=== PATIENT | male | born 1955 | race Caucasian/White ===

== ENCOUNTER 2016-10-31 14:48 | Inpatient (IN) | payer OTHER ==
[~2016-10-31] VITALS: Ht 190.5 cm; Wt 81.6 kg
[2016-10-31 14:48] VITALS: BP 169/95; PULSE 94; RESP 14; TEMP 98.2; O2SAT 98
[~2016-10-31 14:48] MED LIST: AMLO2.5T2 PO; MEMA10TA12 PO; TAMS-11 PO
[2016-10-31] MEDS ORDERED: DEXAMETHASONE SOD PHOSPHATE 10 MG/ML VIAL IVP ONE (15:15)
[2016-10-31] MEDS ORDERED: KETOROLAC TROMETHAMINE 60 MG/2 ML VIAL IM ONE (15:15)
[2016-10-31] MEDS ORDERED: HYDROcodone/ACETAMIN 5-325 MG TAB (NORCO/ VICODIN) PO ONE (15:15)
[2016-10-31 15:52] LABS: BASOPHILS # (AUTO) 0.2 K/uL (0.0-0.2); EOSINOPHILS % (AUTO) 0.4 % (0.0-4.0); HEMATOCRIT 42.9 % (36-54); LYMPHOCYTES # (AUTO) 1.3 K/uL (1.0-5.5); LYMPHOCYTES % (AUTO) 13.9 % (20.5-51.5); MEAN CORPUSCULAR HEMOGLOBIN 28 pg (27-31); MEAN CORPUSCULAR HGB CONC 33 % (32-36); MEAN CORPUSCULAR VOLUME 87 fL (79.0-98.0); MONOCYTES # (AUTO) 0.9 K/uL (0.0-1.0); NEUTROPHILS # (AUTO) 7.2 K/uL (1.8-7.7); NEUTROPHILS % (AUTO) 74.7 % (40.0-70.0); PLATELET COUNT (AUTO) 205 K/uL (130-430); RED BLOOD CELL COUNT(AUTO) 4.94 MIL/uL (4.2-6.2); RED CELL DISTRIBUTION WIDTH 13.5 % (9.0-15.0); WHITE BLOOD COUNT (AUTO) 9.6 K/uL (4.8-10.8)
[2016-10-31 16:03] LABS: CREATININE 0.99 mg/dL (0.55-1.30); POTASSIUM 3.6 mmol/L (3.5-5.1)
[2016-10-31 17:59] VITALS: BP 155/81; PULSE 87; RESP 16; TEMP 98.4; O2SAT 96
[2016-10-31] MEDS ORDERED: MORPHINE 2 MG/ML INJ. SYRINGE IVP PRN (18:45)
[2016-10-31] MEDS ORDERED: POTASSIUM CHLORIDE 10 MEQ TAB.PRT.SR PO PRN (18:45)
[2016-10-31] MEDS ORDERED: DOCUSATE SODIUM 100 MG CAPSULE PO PRN (18:45)
[2016-10-31] MEDS ORDERED: ZOLPIDEM TARTRATE 5 MG TABLET PO PRN (18:45)
[2016-10-31] MEDS ORDERED: ACETAMINOPHEN 325 MG TABLET PO PRN (18:45)
[2016-10-31] MEDS ORDERED: MAGNESIUM SULFATE 50 ML IV PRN (18:45)
[2016-10-31] MEDS ORDERED: LORazepam 2 MG/ML VIAL IVP PRN (18:45)
[2016-10-31] MEDS ORDERED: ONDANSETRON HCL 4 MG/2 ML VIAL IVP PRN (18:45)
[2016-10-31 19:08] VITALS: BP 142/79; PULSE 72; RESP 18; TEMP 98.7; O2SAT 95
[2016-10-31] MEDS: MORPHINE 2 MG/ML INJ. SYRINGE IVP PRN (21:16)
[2016-10-31] MEDS: HEPARIN SODIUM,PORCINE 5000 UNITS/ML VIAL SUBCUT SCH (21:22)
[2016-10-31] MEDS: CYCLOBENZAPRINE HCL 10 MG TABLET (FLEXERIL) PO SCH (21:28)
[2016-11-01 00:32] VITALS: BP 129/72; PULSE 88; RESP 18; TEMP 98.2; O2SAT 96
[2016-11-01 04:49] VITALS: BP 123/68; PULSE 82; RESP 17; TEMP 98; O2SAT 97
[2016-11-01] MEDS: CYCLOBENZAPRINE HCL 10 MG TABLET (FLEXERIL) PO SCH ×3 (05:36→21:26)
[2016-11-01 06:50] LABS: BASOPHILS % (AUTO) 0.1 % (0.0-2.0); HEMATOCRIT 40.3 % (36-54); HEMOGLOBIN 13.1 g/dL (14.0-18.0); LYMPHOCYTES # (AUTO) 0.9 K/uL (1.0-5.5); LYMPHOCYTES % (AUTO) 16.4 % (20.5-51.5); MEAN CORPUSCULAR HEMOGLOBIN 28 pg (27-31); MEAN CORPUSCULAR HGB CONC 33 % (32-36); MEAN CORPUSCULAR VOLUME 87 fL (79.0-98.0); MONOCYTES # (AUTO) 0.1 K/uL (0.0-1.0); MONOCYTES % (AUTO) 2.6 % (1.7-9.3); NEUTROPHILS # (AUTO) 4.7 K/uL (1.8-7.7); NEUTROPHILS % (AUTO) 80.9 % (40.0-70.0); PLATELET COUNT (AUTO) 243 K/uL (130-430); RED BLOOD CELL COUNT(AUTO) 4.66 MIL/uL (4.2-6.2); RED CELL DISTRIBUTION WIDTH 13.6 % (9.0-15.0); WHITE BLOOD COUNT (AUTO) 5.7 K/uL (4.8-10.8)
[2016-11-01 07:21] LABS: CALCIUM 10.1 mg/dL (8.4-11.0); CREATININE 0.98 mg/dL (0.55-1.30); POTASSIUM 3.8 mmol/L (3.5-5.1)
[2016-11-01 08:16] VITALS: BP 152/83; PULSE 92; RESP 18; TEMP 97.7; O2SAT 96
[2016-11-01] MEDS: MEMANTINE HCL 5 MG TABLET PO SCH (08:18)
[2016-11-01] MEDS: TAMSULOSIN HCL 0.4 MG CAP PO SCH (08:18)
[2016-11-01] MEDS: HEPARIN SODIUM,PORCINE 5000 UNITS/ML VIAL SUBCUT SCH ×2 (08:24→21:28)
[2016-11-01] MEDS ORDERED: amLODIPine BESYLATE 5 MG TABLET PO SCH (09:00)
[2016-11-01 12:11] VITALS: BP 134/69; PULSE 97; RESP 19; TEMP 96.8; O2SAT 96
[2016-11-01 16:31] VITALS: BP 143/71; PULSE 79; RESP 17; TEMP 98; O2SAT 98
[2016-11-01 19:00] VITALS: BP 137/82; PULSE 78; RESP 18; TEMP 98.7; O2SAT 93
[2016-11-01] MEDS: MORPHINE 2 MG/ML INJ. SYRINGE IVP PRN (19:02)
[2016-11-02] VITALS (7 sets, daily range): BP systolic 130–155; BP diastolic 67–80; PULSE 59–97; RESP 16–19; TEMP 98–99.4; O2SAT 90–98
[2016-11-02] MEDS: CYCLOBENZAPRINE HCL 10 MG TABLET (FLEXERIL) PO SCH ×3 (06:25→21:26)
[2016-11-02] MEDS: MORPHINE 2 MG/ML INJ. SYRINGE IVP PRN ×3 (06:31→18:43)
[2016-11-02 07:46] LABS: BASOPHILS % (AUTO) 0.3 % (0.0-2.0); EOSINOPHILS % (AUTO) 0.4 % (0.0-4.0); HEMATOCRIT 38.5 % (36-54); LYMPHOCYTES # (AUTO) 1.6 K/uL (1.0-5.5); LYMPHOCYTES % (AUTO) 19.1 % (20.5-51.5); MEAN CORPUSCULAR HEMOGLOBIN 29 pg (27-31); MEAN CORPUSCULAR HGB CONC 34 % (32-36); MEAN CORPUSCULAR VOLUME 86 fL (79.0-98.0); MONOCYTES # (AUTO) 0.6 K/uL (0.0-1.0); MONOCYTES % (AUTO) 7.9 % (1.7-9.3); NEUTROPHILS % (AUTO) 72.3 % (40.0-70.0); PLATELET COUNT (AUTO) 222 K/uL (130-430); RED BLOOD CELL COUNT(AUTO) 4.46 MIL/uL (4.2-6.2); RED CELL DISTRIBUTION WIDTH 14.1 % (9.0-15.0); WHITE BLOOD COUNT (AUTO) 8.2 K/uL (4.8-10.8)
[2016-11-02 08:23] LABS: CALCIUM 9.9 mg/dL (8.4-11.0); CREATININE 1.07 mg/dL (0.55-1.30); POTASSIUM 3.2 mmol/L (3.5-5.1)
[2016-11-02] MEDS: amLODIPine BESYLATE 5 MG TABLET PO SCH (08:32)
[2016-11-02] MEDS: TAMSULOSIN HCL 0.4 MG CAP PO SCH (08:32)
[2016-11-02] MEDS: MEMANTINE HCL 5 MG TABLET PO SCH (08:32)
[2016-11-02] MEDS: HEPARIN SODIUM,PORCINE 5000 UNITS/ML VIAL SUBCUT SCH ×2 (08:36→21:28)
[2016-11-03] VITALS: BP 116/78; PULSE 80; RESP 20; TEMP 98.4; O2SAT 96
[2016-11-03 04:00] VITALS: BP 127/71; PULSE 76; RESP 18; TEMP 98.3; O2SAT 95
[2016-11-03] MEDS: CYCLOBENZAPRINE HCL 10 MG TABLET (FLEXERIL) PO SCH ×3 (06:27→21:38)
[2016-11-03 06:52] LABS: CALCIUM 9.5 mg/dL (8.4-11.0); CREATININE 1.07 mg/dL (0.55-1.30); POTASSIUM 3.6 mmol/L (3.5-5.1)
[2016-11-03 06:54] LABS: BASOPHILS % (AUTO) 0.4 % (0.0-2.0); EOSINOPHILS % (AUTO) 0.5 % (0.0-4.0); HEMATOCRIT 38.7 % (36-54); LYMPHOCYTES # (AUTO) 1.2 K/uL (1.0-5.5); LYMPHOCYTES % (AUTO) 15.6 % (20.5-51.5); MEAN CORPUSCULAR HEMOGLOBIN 29 pg (27-31); MEAN CORPUSCULAR HGB CONC 34 % (32-36); MEAN CORPUSCULAR VOLUME 86 fL (79.0-98.0); MONOCYTES # (AUTO) 0.7 K/uL (0.0-1.0); MONOCYTES % (AUTO) 9.8 % (1.7-9.3); NEUTROPHILS # (AUTO) 5.5 K/uL (1.8-7.7); NEUTROPHILS % (AUTO) 73.7 % (40.0-70.0); PLATELET COUNT (AUTO) 227 K/uL (130-430); RED CELL DISTRIBUTION WIDTH 13.8 % (9.0-15.0); WHITE BLOOD COUNT (AUTO) 7.4 K/uL (4.8-10.8)
[2016-11-03 09:08] LABS: A/G RATIO 0.9 (0.7-1.7); ALBUMIN 3.7 g/dL (2.9-4.4); ALPHA-1-GLOBULIN 0.4 g/dL (0.0-0.4); BETA GLOBULIN 0.9 g/dL (0.7-1.3); GAMMA GLOBULIN 1.7 g/dL (0.4-1.8); M-SPIKE Not Observed g/dL (Not Observed)
[2016-11-03] MEDS: MEMANTINE HCL 5 MG TABLET PO SCH (09:44)
[2016-11-03] MEDS: TAMSULOSIN HCL 0.4 MG CAP PO SCH (09:44)
[2016-11-03] MEDS: amLODIPine BESYLATE 5 MG TABLET PO SCH (09:45)
[2016-11-03] MEDS: HEPARIN SODIUM,PORCINE 5000 UNITS/ML VIAL SUBCUT SCH ×2 (09:48→21:40)
[2016-11-03] MEDS: MORPHINE 2 MG/ML INJ. SYRINGE IVP PRN ×2 (10:06→18:23)
[2016-11-03] MEDS ORDERED: oxyCODONE HCL 10 MG TAB.ER.12H PO ONE (10:15)
[2016-11-03 12:06] VITALS: BP 135/76; PULSE 99; RESP 16; TEMP 99.5; O2SAT 95
[2016-11-03 16:12] VITALS: BP 147/74; PULSE 94; RESP 16; TEMP 98.9; O2SAT 99
[2016-11-03 19:30] VITALS: BP 139/79; PULSE 102; RESP 18; TEMP 100; O2SAT 97
[2016-11-03] MEDS ORDERED: oxyCODONE HCL 10 MG TAB.ER.12H PO SCH (21:00)
[2016-11-04 00:05] VITALS: BP 156/87; PULSE 115; RESP 17; TEMP 100; O2SAT 95
[2016-11-04 04:39] VITALS: BP 156/97; PULSE 113; RESP 17; TEMP 98.4; O2SAT 97
[2016-11-04] MEDS: CYCLOBENZAPRINE HCL 10 MG TABLET (FLEXERIL) PO SCH ×3 (06:07→21:37)
[2016-11-04 06:36] LABS: BASOPHILS % (AUTO) 0.4 % (0.0-2.0); EOSINOPHILS # (AUTO) 0.1 K/uL (0.0-0.4); EOSINOPHILS % (AUTO) 0.7 % (0.0-4.0); HEMATOCRIT 38.9 % (36-54); HEMOGLOBIN 12.9 g/dL (14.0-18.0); LYMPHOCYTES # (AUTO) 1.1 K/uL (1.0-5.5); LYMPHOCYTES % (AUTO) 12.9 % (20.5-51.5); MEAN CORPUSCULAR HEMOGLOBIN 28 pg (27-31); MEAN CORPUSCULAR HGB CONC 33 % (32-36); MEAN CORPUSCULAR VOLUME 86 fL (79.0-98.0); MONOCYTES # (AUTO) 0.7 K/uL (0.0-1.0); MONOCYTES % (AUTO) 8.1 % (1.7-9.3); NEUTROPHILS # (AUTO) 6.6 K/uL (1.8-7.7); NEUTROPHILS % (AUTO) 77.9 % (40.0-70.0); PLATELET COUNT (AUTO) 222 K/uL (130-430); RED BLOOD CELL COUNT(AUTO) 4.56 MIL/uL (4.2-6.2); RED CELL DISTRIBUTION WIDTH 13.8 % (9.0-15.0); WHITE BLOOD COUNT (AUTO) 8.5 K/uL (4.8-10.8)
[2016-11-04 06:47] LABS: CALCIUM 9.3 mg/dL (8.4-11.0); CREATININE 1.1 mg/dL (0.55-1.30); POTASSIUM 3.7 mmol/L (3.5-5.1)
[2016-11-04 08:00] VITALS: BP 134/82; PULSE 121; RESP 18; TEMP 101.1; O2SAT 94
[2016-11-04] MEDS: TAMSULOSIN HCL 0.4 MG CAP PO SCH (09:47)
[2016-11-04] MEDS: MORPHINE 2 MG/ML INJ. SYRINGE IVP PRN (09:47)
[2016-11-04] MEDS: METOPROLOL TARTRATE 25 MG TABLET PO SCH ×2 (09:48→21:38)
[2016-11-04] MEDS: MEMANTINE HCL 5 MG TABLET PO SCH (09:49)
[2016-11-04] MEDS: amLODIPine BESYLATE 5 MG TABLET PO SCH (09:49)
[2016-11-04] MEDS: HEPARIN SODIUM,PORCINE 5000 UNITS/ML VIAL SUBCUT SCH ×2 (09:59→21:37)
[2016-11-04 10:09] LABS: FOLATE (FOLIC ACID) 11.1 ng/mL (>3.0)
[2016-11-04 11:30] VITALS: BP 128/79; PULSE 117; RESP 19; TEMP 99.9; O2SAT 94
[2016-11-04] MEDS: LIDOCAINE PATCH 5% 1 EA TP SCH (15:11)
[2016-11-04 18:32] LABS: BILIRUBIN,URINE NEGATIVE (NEGATIVE); BLOOD, URINE 2+ (NEGATIVE); CLARITY/URINE HAZY (CLEAR); COLOR,URINE YELLOW (YELLOW); GLUCOSE,URINE NEGATIVE (NEGATIVE); KETONES,URINE NEGATIVE (NEGATIVE); LEUKOCYTE ESTERASE ,URINE 1+ (NEGATIVE); NITRITE, URINE NEGATIVE (NEGATIVE); PH,URINE 6.5 (5.0-8.0); PROTEIN URINE 1+ (NEGATIVE); UROBILINOGEN,URINE 0.2 (0.2-1.0)
[2016-11-04 18:46] LABS: BACTERIA,URINE MANY /HPF (None Seen); WBC,URINE 20-50 /HPF (0-3)
[2016-11-05 00:44] VITALS: BP 117/75; PULSE 97; RESP 18; TEMP 99.1; O2SAT 97
[2016-11-05 04:05] VITALS: BP 133/77; PULSE 87; RESP 16; TEMP 97.3; O2SAT 96
[2016-11-05] MEDS: CYCLOBENZAPRINE HCL 10 MG TABLET (FLEXERIL) PO SCH ×3 (05:33→22:04)
[2016-11-05 06:43] LABS: BASOPHILS % (AUTO) 0.5 % (0.0-2.0); EOSINOPHILS # (AUTO) 0.1 K/uL (0.0-0.4); EOSINOPHILS % (AUTO) 1.5 % (0.0-4.0); HEMATOCRIT 40.8 % (36-54); HEMOGLOBIN 13.4 g/dL (14.0-18.0); LYMPHOCYTES # (AUTO) 1.2 K/uL (1.0-5.5); LYMPHOCYTES % (AUTO) 12.5 % (20.5-51.5); MEAN CORPUSCULAR HEMOGLOBIN 28 pg (27-31); MEAN CORPUSCULAR HGB CONC 33 % (32-36); MEAN CORPUSCULAR VOLUME 86 fL (79.0-98.0); MONOCYTES # (AUTO) 0.6 K/uL (0.0-1.0); MONOCYTES % (AUTO) 6.4 % (1.7-9.3); NEUTROPHILS # (AUTO) 7.5 K/uL (1.8-7.7); NEUTROPHILS % (AUTO) 79.1 % (40.0-70.0); PLATELET COUNT (AUTO) 200 K/uL (130-430); RED BLOOD CELL COUNT(AUTO) 4.76 MIL/uL (4.2-6.2); RED CELL DISTRIBUTION WIDTH 14.2 % (9.0-15.0); WHITE BLOOD COUNT (AUTO) 9.4 K/uL (4.8-10.8)
[2016-11-05 06:45] LABS: CALCIUM 9.8 mg/dL (8.4-11.0); CREATININE 1.01 mg/dL (0.55-1.30); POTASSIUM 3.8 mmol/L (3.5-5.1)
[2016-11-05 08:00] VITALS: BP 131/63; PULSE 95; RESP 20; TEMP 98; O2SAT 97
[2016-11-05] MEDS: cefTRIAXone 1 GM in D5W 50 ML IV SCH ×2 (09:00→14:59)
[2016-11-05] MEDS: TAMSULOSIN HCL 0.4 MG CAP PO SCH (09:49)
[2016-11-05] MEDS: MEMANTINE HCL 5 MG TABLET PO SCH (09:49)
[2016-11-05] MEDS: amLODIPine BESYLATE 5 MG TABLET PO SCH (09:50)
[2016-11-05] MEDS: METOPROLOL TARTRATE 25 MG TABLET PO SCH ×2 (09:50→22:05)
[2016-11-05] MEDS: LIDOCAINE PATCH 5% 1 EA TP SCH (09:52)
[2016-11-05] MEDS: HEPARIN SODIUM,PORCINE 5000 UNITS/ML VIAL SUBCUT SCH ×2 (09:54→22:06)
[2016-11-05] MEDS: MORPHINE 2 MG/ML INJ. SYRINGE IVP PRN (09:55)
[2016-11-05 12:00] VITALS: BP 129/71; PULSE 82; RESP 18; TEMP 97.5; O2SAT 94
[2016-11-05 16:11] VITALS: BP 128/68; PULSE 94; RESP 16; TEMP 97.8; O2SAT 96
[2016-11-05 16:16] VITALS: Ht 190.5 cm; Wt 81.6 kg
[2016-11-05 19:55] VITALS: BP 138/79; PULSE 107; RESP 18; TEMP 99.3; O2SAT 96
[2016-11-06 00:55] VITALS: BP 137/75; PULSE 100; RESP 18; TEMP 98.2; O2SAT 95
[2016-11-06 04:17] VITALS: BP 141/76; PULSE 96; RESP 20; TEMP 97.6; O2SAT 96
[2016-11-06] MEDS: CYCLOBENZAPRINE HCL 10 MG TABLET (FLEXERIL) PO SCH ×3 (05:29→21:03)
[2016-11-06] MEDS: MORPHINE 2 MG/ML INJ. SYRINGE IVP PRN (06:10)
[2016-11-06 08:20] VITALS: BP 136/77; PULSE 97; RESP 17; TEMP 98.8; O2SAT 96
[2016-11-06] MEDS: MEMANTINE HCL 5 MG TABLET PO SCH (09:43)
[2016-11-06] MEDS: TAMSULOSIN HCL 0.4 MG CAP PO SCH (09:44)
[2016-11-06] MEDS: cefTRIAXone 1 GM in D5W 50 ML IV SCH (09:44)
[2016-11-06] MEDS: LIDOCAINE PATCH 5% 1 EA TP SCH (09:44)
[2016-11-06] MEDS: METOPROLOL TARTRATE 25 MG TABLET PO SCH ×2 (09:44→21:04)
[2016-11-06] MEDS: amLODIPine BESYLATE 5 MG TABLET PO SCH (09:44)
[2016-11-06] MEDS: HEPARIN SODIUM,PORCINE 5000 UNITS/ML VIAL SUBCUT SCH ×2 (09:46→21:05)
[2016-11-06 12:57] VITALS: BP 128/62; PULSE 84; RESP 22; TEMP 97.2; O2SAT 97
[2016-11-06 16:01] VITALS: BP 127/72; PULSE 101; RESP 18; TEMP 97.8; O2SAT 97
[2016-11-06 20:00] VITALS: BP 124/91; PULSE 112; RESP 19; TEMP 98.8; O2SAT 94
[2016-11-07] VITALS: BP 123/71; PULSE 88; RESP 17; TEMP 99; O2SAT 95
[2016-11-07 04:00] VITALS: BP 130/73; PULSE 91; RESP 17; TEMP 99.7; O2SAT 94
[2016-11-07] MEDS: CYCLOBENZAPRINE HCL 10 MG TABLET (FLEXERIL) PO SCH ×2 (05:23→15:54)
[2016-11-07 08:09] VITALS: BP 124/79; PULSE 98; RESP 16; TEMP 99.2; O2SAT 96
[2016-11-07] MEDS: TAMSULOSIN HCL 0.4 MG CAP PO SCH (09:14)
[2016-11-07] MEDS: amLODIPine BESYLATE 5 MG TABLET PO SCH (09:15)
[2016-11-07] MEDS: METOPROLOL TARTRATE 25 MG TABLET PO SCH (09:15)
[2016-11-07] MEDS: MEMANTINE HCL 5 MG TABLET PO SCH (09:15)
[2016-11-07] MEDS: HEPARIN SODIUM,PORCINE 5000 UNITS/ML VIAL SUBCUT SCH (09:17)
[2016-11-07] MEDS: LIDOCAINE PATCH 5% 1 EA TP SCH (09:18)
[2016-11-07] MEDS: cefTRIAXone 1 GM in D5W 50 ML IV SCH (10:18)
[2016-11-07] MEDS: MORPHINE 2 MG/ML INJ. SYRINGE IVP PRN (10:18)
[2016-11-07 12:59] VITALS: BP 124/69; PULSE 95; RESP 16; TEMP 98; O2SAT 99
[2016-11-07] MEDS ORDERED: HYDROcodone/ACETAMIN 10-325 MG TAB PO PRN (15:15)
[2016-11-07 16:05] VITALS: BP 130/70; PULSE 89; RESP 17; TEMP 97.8; O2SAT 98
[2016-11-07 18:01] VITALS: BP 130/70; PULSE 89; RESP 17; TEMP 97.8; O2SAT 98
== END 2016-11-07 20:31 | disposition home or self-care (01) | DRG 720 ==
LOC: SED 14:48 → SMU 16:23 → UNDODISIN 11-07 20:31
PROVIDERS: ADMIT General Practice; ATTEND General Practice
DX: A41.9 Sepsis, unspecified organism (principal); E87.1 Hypo-osmolality and hyponatremia; F03.90 Unspecified dementia, unspecified severity, without behavioral disturbance, psychotic disturbance, mood disturbance, and anxiety; M48.56XA Collapsed vertebra, not elsewhere classified, lumbar region, initial encounter for fracture; N39.0 Urinary tract infection, site not specified; I10 Essential (primary) hypertension; R26.81 Unsteadiness on feet; M47.816 Spondylosis without myelopathy or radiculopathy, lumbar region; N40.0 Benign prostatic hyperplasia without lower urinary tract symptoms; R29.6 Repeated falls; Z86.73 Personal history of transient ischemic attack (TIA), and cerebral infarction without residual deficits
CPT/HCPCS: 36415; 71010; 72131; 80048; 81000-TC; 82607; 82746; 83735-TC; 84155; 84165; 84443-TC; 85025; 87086; 87186-TC; 96372; 96374; 97110-GP; 97116-GP; 97530-GP; 99285; J0696; J1100; J1644; J1885; J2270; J7050; J7060

== ENCOUNTER 2016-12-18 06:40 | Inpatient (IN) | payer OTHER ==
[~2016-12-18] VITALS: Ht 170.2 cm; Wt 63.0 kg
--- NOTE | 2016-12-18 06:40 | NUR ---
Patient to ER bed 2 to gown for evaluation. Side rails up. Report given to ENA Montilla. Hooked to monitor technician.
[2016-12-18 06:42] VITALS: BP 140/89; PULSE 133; RESP 22; TEMP 104; O2SAT 100
--- NOTE | 2016-12-18 06:45 | NUR ---
Pt confused, unable to verbalize needs. Pt came from [facility] with chief c/o altered level of conciousness, fever 104. aware. Continue to monitor
--- NOTE | 2016-12-18 06:50 | NUR ---
# 20 gauge angiocath placed to R wrist. Use of asceptic technique. Opsite placed over site. Blood return noted. Blood for lab drawn from site. Flushed with 10 cc of normal saline. No evidence of infiltration noted. Patient tolerated well.
--- NOTE | 2016-12-18 07:10 | NUR ---
ER at bedside examining patient.
[2016-12-18] MEDS ORDERED: ACETAMINOPHEN 650 MG SUPP.RECT RC ONE ×2 (07:13→07:30)
[2016-12-18] MEDS ORDERED: NS 1000 ML BAG IV ONE (07:15)
[2016-12-18] MEDS ORDERED: LEVOFLOXACIN 500 MG/D5W 100 ML IV ONE (07:15)
[2016-12-18] MEDS ORDERED: ACETAMINOPHEN 325 MG TABLET PO ONE (07:15)
--- NOTE | 2016-12-18 07:20 | NUR ---
Assumed care of pt. Pt lying in bed, supine. Suppository of tylenol given. Small, soft brown BM cleansed, clean chux placed. Pt tolerated well. ST on monitor, cold cloth on forehead for fever. Non-verbal, eyes open, not tracking. Pupils PERRLA. Moves upper extremities to pain and tactile touch. No redness noted to backside. Pt has abd binder in place, removed. Abdomen soft, no redness, no recent surgeries. Left arm slightly contracted, +active ROM, pt retracts arm up after flexion. Right arm no retraction. Bilat legs flaccid, shakes at time, no passive bending noted.
--- NOTE | 2016-12-18 07:24 | NUR ---
# 16 FR Col[place] catheter with use of sterile technique. Immediate return of 400 cc dark yellow/yas urine noted. Bedside drainage bag placed below level of bladder. Urine sample collected and sent to lab. Pt tolerated procedure well. Patient unable to toilet self d/t condition.
[2016-12-18 07:25] LABS: BASOPHILS # (AUTO) 0.2 K/uL (0.0-0.2); EOSINOPHILS % (AUTO) 0.2 % (0.0-4.0); HEMATOCRIT 41.5 % (36-54); HEMOGLOBIN 13.6 g/dL (14.0-18.0); LYMPHOCYTES # (AUTO) 0.9 K/uL (1.0-5.5); LYMPHOCYTES % (AUTO) 11.1 % (20.5-51.5); MEAN CORPUSCULAR HEMOGLOBIN 28 pg (27-31); MEAN CORPUSCULAR HGB CONC 33 % (32-36); MEAN CORPUSCULAR VOLUME 86 fL (79.0-98.0); MONOCYTES # (AUTO) 0.5 K/uL (0.0-1.0); MONOCYTES % (AUTO) 5.8 % (1.7-9.3); NEUTROPHILS # (AUTO) 6.8 K/uL (1.8-7.7); NEUTROPHILS % (AUTO) 80.9 % (40.0-70.0); PLATELET COUNT (AUTO) 239 K/uL (130-430); RED BLOOD CELL COUNT(AUTO) 4.86 MIL/uL (4.2-6.2); RED CELL DISTRIBUTION WIDTH 14.6 % (9.0-15.0); WHITE BLOOD COUNT (AUTO) 8.4 K/uL (4.8-10.8)
--- NOTE | 2016-12-18 07:30 | NUR ---
NS infusing to LAC noted to be infiltrated. D/C'd. IV removed catheter intact. No active bleeding. Continue IVF to 20g IV rt wrist. Addendum: 12/18/16 at 0740 by SDEDSTC dressing placed
[2016-12-18] MEDS ORDERED: NOR10 PO (07:32)
[2016-12-18] MEDS ORDERED: METO25TA6 PO (07:33)
[2016-12-18] MEDS ORDERED: CYCL-10 PO (07:33)
[2016-12-18] MEDS ORDERED: HEPA500014 SUBCUT (07:34)
[2016-12-18] MEDS ORDERED: LIDP TP (07:35)
--- NOTE | 2016-12-18 07:35 | NUR ---
IVPB infusing to rt wrist with no s/sx of infiltration.
--- NOTE | 2016-12-18 07:35 | NUR ---
Medication reconciliation completed with information provided by Mark Garrett. Any prior medication reconciliation on file was reviewed and corrected.
[2016-12-18 07:36] LABS: BILIRUBIN,URINE 1+ (NEGATIVE); BLOOD, URINE 3+ (NEGATIVE); CLARITY/URINE CLEAR (CLEAR); COLOR,URINE YELLOW (YELLOW); GLUCOSE,URINE NEGATIVE (NEGATIVE); KETONES,URINE TRACE (NEGATIVE); LEUKOCYTE ESTERASE ,URINE TRACE (NEGATIVE); NITRITE, URINE NEGATIVE (NEGATIVE); PH,URINE 5.5 (5.0-8.0); PROTEIN URINE 2+ (NEGATIVE)
--- NOTE | 2016-12-18 07:39 | NUR ---
Phleb at bedside for lab re-draw, previous blood was hemolized.
[2016-12-18 07:45] LABS: BACTERIA,URINE MODERATE /HPF (None Seen); MUCUS,URINE 1+ /LPF (None Seen); WBC,URINE 20-50 /HPF (0-3)
--- NOTE | 2016-12-18 07:50 | NUR ---
Blood noted to be in guan catheter tubing. notified
[2016-12-18 08:03] LABS: CALCIUM 9.7 mg/dL (8.4-11.0); CREATININE 1.2 mg/dL (0.55-1.30)
[2016-12-18 08:04] LABS: INR 1.1 (0.80-1.20)
--- NOTE | 2016-12-18 08:04 | NUR ---
Off unit for CT via [facility]
[2016-12-18 08:08] LABS: TOTAL BILIRUBIN 0.5 mg/dL (0.0-1.0); TOTAL PROTEIN, SERUM 7.9 g/dL (6.4-8.3)
--- NOTE | 2016-12-18 08:17 | NUR ---
Pt back from CT, tolerated well.
--- NOTE | 2016-12-18 08:28 | NUR ---
Pt cleansed for skant soft brown BM. Clean chux placed. Rectal temp 101.1. Pt awake, alert, tracking. Able to move arms and legs freely. Denies pain. Able to mumble yes/no answers and nod head appropriately. IVF infusing with no s/x of infiltration. Will continue to monitor.
--- NOTE | 2016-12-18 09:08 | NUR ---
Daughter Anne on the phone states that last night he was altered and was unable to talk to her and he usually is able to have a conversation. Hx of dementia and is forgetful, but usually able to communicate needs.
[2016-12-18] MEDS ORDERED: MORPHINE 2 MG/ML INJ. SYRINGE IVP PRN (09:15)
[2016-12-18] MEDS ORDERED: ZOLPIDEM TARTRATE 5 MG TABLET PO PRN (09:15)
[2016-12-18] MEDS ORDERED: ACETAMINOPHEN 325 MG TABLET PO PRN (09:15)
[2016-12-18] MEDS ORDERED: LORazepam 2 MG/ML VIAL IVP PRN (09:15)
[2016-12-18] MEDS ORDERED: MAGNESIUM SULFATE 50 ML IV PRN (09:15)
[2016-12-18] MEDS ORDERED: DOCUSATE SODIUM 100 MG CAPSULE PO PRN (09:15)
[2016-12-18] MEDS ORDERED: ONDANSETRON HCL 4 MG/2 ML VIAL IVP PRN (09:15)
--- NOTE | 2016-12-18 09:18 | NUR ---
Patient will be admitted to care of Dr. Patel. Admitted to tele unit. Will go to room 121-B. Belongings list completed. Summary report printed. Report given to RN at bedside. Transfer to tele via ACLS protocol. Licensed nurse present. IV present no signs or symptoms of infiltration.
--- NOTE | 2016-12-18 09:23 | NUR ---
Dr. Patel at bedside for evaluation
[2016-12-18 09:30] VITALS: BP 137/75; PULSE 116; RESP 18; TEMP 99; O2SAT 99
--- NOTE | 2016-12-18 09:30 | NUR ---
ADMISSION NOTE Received patient from ER via gurney, received report from RN. Patient admitted with diagnosis of UTI. Patient oriented to hospital routine, call light, toileting and safety-patient verbalized understanding.
--- NOTE | 2016-12-18 09:35 | NUR ---
NOTES RECEIVED FROM ER, SLIGHTLY DROWSY. PT UNABLE TO TALK AT THIS TIME. 2ND BAG OF NS RUNNING AT THIS TIME. JAIME CATHETER DRAINING DARK URINE. NO SKIN BREAKDOWN. SAFETY PRECAUTION OBSERVED. WILL MONITOR.
--- NOTE | 2016-12-18 10:54 | NUR ---
CONSULT WAS CALLED LEFT MASSAGE WITH GAIL SPEECH THERAPIST
--- NOTE | 2016-12-18 11:30 | NUR ---
NOTES IN BED AWAKE, RESTING. PT TRYING TO TALK BUT UNABLE TO. KEEP NPO FOR NOW. WAITING FOR SWALLOW EVAL.
[2016-12-18 12:18] VITALS: BP 136/79; PULSE 114; RESP 14; TEMP 97.9; O2SAT 100
[2016-12-18] MEDS: D5NS 1,000 ML IV SCH ×2 (13:40→21:43)
[2016-12-18] MEDS: CYCLOBENZAPRINE HCL 10 MG TABLET (FLEXERIL) PO SCH ×2 (13:41→21:28)
--- NOTE | 2016-12-18 15:00 | NUR ---
NOTES FAMILY AT BEDSIDE. PER FAMILY, PT ABLE TO COMMUNICATE YESTERDAY AND THE FACIAL DROOPING ON THE RIGHT OF THE FACE IS NEW. PT DOES NOT FOLLOW COMMAND AT THIS TIME.
--- NOTE | 2016-12-18 15:10 | NUR ---
SPEECH THERAPIST AT BEDSIDE AT THIS TIME.
--- NOTE | 2016-12-18 15:17 | NUR ---
S.T. SWALLOW EVAL COMPLETED. ADULT CHILDREN PRESENT. PT PRESENTS W/ SEV OROPHARYNGEAL DYSPHAGIA W/ POOR BOLUS CLINICAL RESEARCH ANALYST, ABSENT BOLUS TRANSFER AND ABSENT SWALLOW. PT IS AT HIGH RISK FOR ASPIRATION, MALNUTRITION, AND DEHYDRATION. REC: NPO - ALTERNATIVE METHOD FOR FEEDING. RE-EVAL WHEN INDICATED. NURSES MOUNIKA WESTFALL AND OLGA NOTIFIED OF RESULTS AND RECOMMENDATIONS AND OBSERVATION OF R FACIAL DROOP. G8996 CN G8997 CN [id number] CN NOMS LEVEL 1
--- NOTE | 2016-12-18 15:30 | NUR ---
PAGED PAGED DR. BRISENO RE: SLIGHT FACIAL DROOPING. PER SPEECH THERAPIST PT FAILED SWALLOW EVAL.
[2016-12-18 15:59] VITALS: BP 130/72; PULSE 112; RESP 17; TEMP 97.9; O2SAT 97
--- NOTE | 2016-12-18 16:30 | NUR ---
MD CALLED SPOKE TO DR. BRISENO AND MADE AWARE OF PT'S RT FACIAL DROOPING AND NOT ABLE TO TALK. PT JUST MUMBLE WHICH IS NOT NORMAL PER FAMILY. MD ORDERED CONSULT FOR DR. VERAS AT THIS TIME.
--- NOTE | 2016-12-18 16:45 | NUR ---
MD ROUNDS DR. VERAS HERE AND MADE AWARE OF CONSULTS.
--- NOTE | 2016-12-18 17:00 | NUR ---
NOTES DR. VERAS AT BEDSIDE, TALKING TO THE FAMILY.
--- NOTE | 2016-12-18 18:54 | NUR ---
CLOSING NOTES PT IN BED AWAKE, STILL PT DOES NOT TALK. KEEP PT ON NPO AT THIS TIME. IVF INFUSING WELL. AFEBRILE. NO ACUTE DISTRESS NOTED. BED ALARM ON.WILL MONITOR.
--- NOTE | 2016-12-18 19:20 | NUR ---
INITIAL NOTE RECVD PT IN BED AWAKE BUT WITH FLAT AFFECT AND NON VERBAL. V/S 142/82,98.8,116,19,98%. IV NOTED TO R WRIST G 20 NO INFILTRATE AND WITH GOOD BLOOD RETURN. BED IN LOW POSITION WITH CALL LIGHT WITHIN REACH. WILL CONT TO MONITOR.
--- NOTE | 2016-12-18 21:20 | NUR ---
ROUNDS PT IS IN BED AWAKE BUT NO VERBAL OR PHYSICAL RESPOND TO QUESTIONS. PT JUST STARING IN THE WALL. V/S ARE WNL. BED IN LOW POSITION WITH CALL LIGHT WITHIN REACH, WILL CONT TO MONITOR.
[2016-12-18] MEDS: METOPROLOL TARTRATE 25 MG TABLET PO SCH (21:29)
[2016-12-18] MEDS: HEPARIN SODIUM,PORCINE 5000 UNITS/ML VIAL SUBCUT SCH (21:36)
--- NOTE | 2016-12-18 23:20 | NUR ---
ROUNDS PT IS RESTING COMFORTABLY IN BED. NO S/S OF PAIN AND NO RESPI DISTRESS NOTED. BED IN LOW POSITION WITH CALL LIGHT WITHIN REACH. WILL CONT TO MONITOR.
[2016-12-19 00:29] VITALS: BP 142/77; PULSE 90; RESP 18; TEMP 98.2; O2SAT 93
--- NOTE | 2016-12-19 03:20 | NUR ---
ROUNDS PT IS RESTING COMFORTABLY IN BED AWAKE. NO S/S OF PAIN AND NO RESPI DISTRESS NOTED. BED IN LOW POSITION WITH CALL LIGHT WITHIN REACH. WILL CONT TO MONITOR.
[2016-12-19] MEDS: CYCLOBENZAPRINE HCL 10 MG TABLET (FLEXERIL) PO SCH ×3 (05:12→21:55)
[2016-12-19] MEDS: D5NS 1,000 ML IV SCH ×2 (05:15→15:19)
--- NOTE | 2016-12-19 05:20 | NUR ---
AM CARE ASSISTED PT WITH AM CARE. NO S/S O PAIN AND NO DISTRESS NOTED. BED IN LOW POSITION WITH CALL LIGHT WITHIN REACH. WILL CONT TO MONITOR.
[2016-12-19 05:26] VITALS: BP 141/81; PULSE 113; RESP 20; TEMP 99.6; O2SAT 94
[2016-12-19 06:33] LABS: BASOPHILS % (AUTO) 0.5 % (0.0-2.0); EOSINOPHILS % (AUTO) 0.3 % (0.0-4.0); HEMATOCRIT 35.7 % (36-54); HEMOGLOBIN 12.6 g/dL (14.0-18.0); LYMPHOCYTES # (AUTO) 1.4 K/uL (1.0-5.5); LYMPHOCYTES % (AUTO) 14.9 % (20.5-51.5); MEAN CORPUSCULAR HEMOGLOBIN 30 pg (27-31); MEAN CORPUSCULAR HGB CONC 35 % (32-36); MEAN CORPUSCULAR VOLUME 84 fL (79.0-98.0); NEUTROPHILS # (AUTO) 6.8 K/uL (1.8-7.7); NEUTROPHILS % (AUTO) 73.3 % (40.0-70.0); PLATELET COUNT (AUTO) 165 K/uL (130-430); RED BLOOD CELL COUNT(AUTO) 4.24 MIL/uL (4.2-6.2); RED CELL DISTRIBUTION WIDTH 14.2 % (9.0-15.0); WHITE BLOOD COUNT (AUTO) 9.2 K/uL (4.8-10.8)
[2016-12-19 06:37] LABS: CALCIUM 9.1 mg/dL (8.4-11.0); POTASSIUM 3.2 mmol/L (3.5-5.1)
--- NOTE | 2016-12-19 06:57 | NUR ---
FINAL NOTES PT IS COMFORTABLY RESTING @ THIS TIME. NO S/S OF PAIN. V/S ARE WNL. ALL NEEDS MET AND ANTICIPATED BY NOC NURSES. BED IN LOW POSITION WITH SIDE RAILS UPX 2 FOR SAFETY. CALL LIGHT WITHIN REACH, ENDORSED.
--- NOTE | 2016-12-19 07:08 | NUR ---
SPOKE WITH DR FINN ARRIOLA AND SPOKE WITH DR BRISENO AND REPORTED ABOUT PT'S POTASSIUM@ 3.2. THE GOOD DOCTOR ORDERED K RIDER 40 MEQ IV. ORDERED NOTED.
[2016-12-19] MEDS ORDERED: POTASSIUM CHLORIDE 40 MEQ, LIDOCAINE JECT 2% PF 100 MG 25 MG in NS 250 ML IV ONE (07:15)
--- NOTE | 2016-12-19 07:44 | NUR ---
Nutrition Update Jefry Scale 14 noted. Pt admitted for UTI. Diet: NPO BMI: 21.6 kg/m2 RD to follow per nutrition care standards.
[2016-12-19 07:50] VITALS: BP 145/82; PULSE 113; RESP 18; TEMP 98.6; O2SAT 100
--- NOTE | 2016-12-19 07:51 | NUR ---
Initial Note Received pt in bed, no s/s of distress or sob noted, pt has no facial grimacing noted for pain, pt in stable condition. Pt aaox1, confused, provided pt with reality orientation. IV catheter patent, no signs of infection or infiltration noted, running iv fluids as ordered. Bed at lowest position, call light within reach, will continue to monitor pt for any change, fall precautions in place, f/c draining via gravity.
--- NOTE | 2016-12-19 08:10 | NUR ---
MD ROUNDS Dr Patel roundrashid, aware of patients condition, aware that pt failed swallow evaluation yesterday and that he was going to get it re done today and that no oral medications have been given.
[2016-12-19] MEDS: LEVOFLOXACIN 500 MG/D5W 100 ML IV SCH (08:32)
[2016-12-19] MEDS: MEMANTINE HCL 5 MG TABLET PO SCH (08:41)
[2016-12-19] MEDS: TAMSULOSIN HCL 0.4 MG CAP PO SCH (08:41)
[2016-12-19] MEDS: amLODIPine BESYLATE 10 MG TABLET PO SCH (08:41)
[2016-12-19] MEDS: METOPROLOL TARTRATE 25 MG TABLET PO SCH ×2 (08:41→20:45)
[2016-12-19] MEDS: LIDOCAINE PATCH 5% 1 EA TP SCH (08:45)
[2016-12-19] MEDS: HEPARIN SODIUM,PORCINE 5000 UNITS/ML VIAL SUBCUT SCH ×2 (08:45→20:48)
--- NOTE | 2016-12-19 10:30 | NUR ---
MD CALL Dr madison schultz, daughter wants to speak to him in regards patients condition, awaiting call back.
--- NOTE | 2016-12-19 10:44 | NUR ---
ROUNDS Pt in bed, no s/s of distress or sob noted, pt has no facial grimacing noted for pain, pt in stable condition, pt resting comfortably. Will continue to monitor pt for any changes.
[2016-12-19 12:08] VITALS: Ht 170.2 cm; Wt 63.0 kg
[2016-12-19 12:15] VITALS: BP 130/71; PULSE 109; RESP 20; TEMP 98.7; O2SAT 99
--- NOTE | 2016-12-19 12:55 | NUR ---
DISCHARGE PLANNING Contracted home health; [phone] [phone] [phone]. Contracted [facility]; [facility] [place] [facility] .
--- NOTE | 2016-12-19 15:57 | NUR ---
S.T. SWALLOW RE-EVAL COMPLETED. PT PRESENTS W/ MOD OROPHARYNGEAL DYSPHAGIA W/ ERRATIC BOLUS FITNESS CENTRE MANAGER, DELAYED BOLUS TRANSFER AND DELAYED SWALLOW. NO S/S OF ASPIRATION FOR PUREE ADN THICK LIQUIDS. SIGNIFICANT IMPROVEMENT FROM YESTERDAY. REC: PUREE DIET. THICKENED LIQUIDS (NECTAR CONSISTENCY). NO STRAW. S.T. TO FOLLOW UP W/ DYSPHAGIA TX. NURSE SHEREE NOTIFIED. G8996 CK NOMS LEVEL 4 G8997 CI NOMS LEVEL 6
[2016-12-19 16:24] VITALS: BP 156/83; PULSE 110; RESP 18; TEMP 97.4; O2SAT 97
--- NOTE | 2016-12-19 16:35 | NUR ---
Consult Called Dr. Alonso for consult on positive blood culture spoke with Alexa.
--- NOTE | 2016-12-19 18:02 | NUR ---
CLOSING NOTE Pt in bed, no s/s of distress or sob noted, pt has no facial grimacing noted for pain, pt in stable condition. Pt aaox1, confused, provided pt with reality orientation. IV catheter patent, no signs of infection or infiltration noted, running iv fluids as ordered. Bed at lowest position, call light within reach, will endorse care of pt to incoming nurse, fall precautions in place, f/c draining via gravity. Pt currently eating dinner with total assistance from family, family educated on aspiration precautions and diet ordered, verbalized understanding.
--- NOTE | 2016-12-19 19:10 | NUR ---
INITIAL NOTE RECVD PT IN BED AWAKE BUT WITH FLAT AFFECT AND NON VERBAL. V/S 141/87,98.2,110,18,98%%. IV NOTED TO R WRIST G 20 NO INFILTRATE AND WITH GOOD BLOOD RETURN. BED IN LOW POSITION WITH CALL LIGHT WITHIN REACH. WILL CONT TO MONITOR.
[2016-12-19 19:15] VITALS: BP 141/87; PULSE 110; RESP 19; TEMP 98.2; O2SAT 98
--- NOTE | 2016-12-19 20:00 | NUR ---
TRANSFERRED TO ANOTHER TRANSFERRED PT TO ISOLATION RM 119A D/T PT POSITIVE FOR MRSA.
[2016-12-19] MEDS: MUPIROCIN 2% TOPICAL OINTMENT 22 GM TP SCH (20:46)
--- NOTE | 2016-12-19 21:10 | NUR ---
ROUNDS PT IS COMFORTABLY RESTING IN BED @ THIS TIME. NO S/S OF PAIN AND NO SOB NOTED. BED IN LOW POSITION WITH SIDE RAILS UP X3. CALL LIGHT WITHIN REACH, WILL CONT TO MONITOR.
[2016-12-20] VITALS (7 sets, daily range): BP systolic 132–151; BP diastolic 60–81; PULSE 94–112; RESP 17–18; TEMP 96.7–97.8; O2SAT 98–99
--- NOTE | 2016-12-20 01:10 | NUR ---
REPOSITIONED IN BED ASSISTED PT TO REPOSITION IN BED. NO S/S OF PAIN AND NO DISTRESS NOTED @ THIS TIME. BED IN LOW POSITION WITH CALL LIGHT WITHIN REACH. WILL CONT TO MONITOR.
[2016-12-20] MEDS: D5NS 1,000 ML IV SCH ×3 (01:15→20:47)
--- NOTE | 2016-12-20 03:10 | NUR ---
ROUNDS REPOSITIONED PT IN BED. NO S/S OF PAIN AND NO SOB NOTED. BED IN LOW POSITION WITH SIDE RAILS UP X3. CALL LIGHT WITHIN REACH, WILL CONT TO MONITOR.
--- NOTE | 2016-12-20 05:10 | NUR ---
AM CARE PARTIAL BED BATH AND ORAL CARE WAS PERFORMED WITH PT. NO S/S OF PAIN AND NO RESPI DISTRESS NOTED. BED IN LOW POSITION WITH CALL LIGHT WITHIN REACH; WILL CONT TO MONITOR.
[2016-12-20] MEDS: CYCLOBENZAPRINE HCL 10 MG TABLET (FLEXERIL) PO SCH ×3 (05:16→22:23)
[2016-12-20 06:32] LABS: BASOPHILS % (AUTO) 0.4 % (0.0-2.0); EOSINOPHILS # (AUTO) 0.1 K/uL (0.0-0.4); HEMATOCRIT 35.9 % (36-54); HEMOGLOBIN 11.9 g/dL (14.0-18.0); LYMPHOCYTES % (AUTO) 14.9 % (20.5-51.5); MEAN CORPUSCULAR HEMOGLOBIN 29 pg (27-31); MEAN CORPUSCULAR HGB CONC 33 % (32-36); MEAN CORPUSCULAR VOLUME 87 fL (79.0-98.0); MONOCYTES # (AUTO) 0.6 K/uL (0.0-1.0); NEUTROPHILS # (AUTO) 5.2 K/uL (1.8-7.7); NEUTROPHILS % (AUTO) 74.7 % (40.0-70.0); PLATELET COUNT (AUTO) 189 K/uL (130-430); RED BLOOD CELL COUNT(AUTO) 4.12 MIL/uL (4.2-6.2); RED CELL DISTRIBUTION WIDTH 13.9 % (9.0-15.0); WHITE BLOOD COUNT (AUTO) 6.9 K/uL (4.8-10.8)
--- NOTE | 2016-12-20 06:44 | NUR ---
FINAL NOTES PT IS COMFORTABLY RESTING @ THIS TIME. NO S/S OF PAIN. V/S ARE WNL. ASPIRATION PRECAUTION OBSERVED. ALL NEEDS MET AND ANTICIPATED BY NOC NURSES. BED IN LOW POSITION WITH SIDE RAILS UPX 2 FOR SAFETY. CALL LIGHT WITHIN REACH.
[2016-12-20 06:47] LABS: CREATININE 0.89 mg/dL (0.55-1.30); POTASSIUM 3.1 mmol/L (3.5-5.1)
--- NOTE | 2016-12-20 08:00 | NUR ---
NOTE PT RESTING IN BED, ASSISTED IN PULLING UP IN BED WITH HOB AT 90' FOR FEEDING PUREED BREAKFAST BY VINEYARD TENDER. NO SOB/RESP DISTRESS OR PAIN/DISCOMFORT NOTED AT THIS TIME. TELE UNIT ATTACHED AND TRANSMITTING WELL AT THIS TIME. IVF'S INFUSING WELL THROUGH RIGHT WRIST IV SITE. JAIME INTACT AND DRAINING WELL. PT MAINTAINED WITH SAFETY PRECAUTIONS IN PLACE. CALL LIGHT WITHIN REACH.
[2016-12-20] MEDS: LEVOFLOXACIN 500 MG/D5W 100 ML IV SCH (09:13)
[2016-12-20] MEDS: MEMANTINE HCL 5 MG TABLET PO SCH (09:14)
[2016-12-20] MEDS: LIDOCAINE PATCH 5% 1 EA TP SCH (09:14)
[2016-12-20] MEDS: TAMSULOSIN HCL 0.4 MG CAP PO SCH (09:15)
[2016-12-20] MEDS: amLODIPine BESYLATE 10 MG TABLET PO SCH (09:15)
[2016-12-20] MEDS: METOPROLOL TARTRATE 25 MG TABLET PO SCH ×2 (09:15→20:40)
[2016-12-20] MEDS: HEPARIN SODIUM,PORCINE 5000 UNITS/ML VIAL SUBCUT SCH ×2 (09:17→20:38)
[2016-12-20] MEDS: POTASSIUM CHLORIDE 10 MEQ TAB.PRT.SR PO PRN (09:18)
--- NOTE | 2016-12-20 09:30 | NUR ---
NOTE DR BRISENO ON THE FLOOR AND ASSESSMENT AND ORDERS COMPLETED AT THIS TIME.
[2016-12-20] MEDS: MUPIROCIN 2% TOPICAL OINTMENT 22 GM TP SCH ×2 (09:35→20:44)
--- NOTE | 2016-12-20 10:34 | NUR ---
IV RE-INSERTION: IV site leaking. Restarted on left wrist. Successful after 1 attempts g.22. Resumed current IVF . Will observe for any signs of infiltration.
--- NOTE | 2016-12-20 12:00 | NUR ---
NOTE PT RESTING IN BED. AWAKE BUT NON VERBAL. NO SOB/RESP DISTRESS OR PAIN/DISCOMFORT NOTED AT THIS TIME. PT CHECKED ON Q1' AND PRN FOR NEEDS AND CARE. CALL LIGHT WITHIN REACH.
--- NOTE | 2016-12-20 14:55 | NUR ---
NOTE PT RESTING IN BED. NO NEEDS NOTED AT THIS TIME. PT TURNED Q2' FOR COMFORT AND TO PROMOTE CIRCULATION AT THIS TIME. NO NEEDS NOTED. CALL LIGHT WITHIN REACH AND PT CHECKED ON Q1' AND PRN FOR NEEDS AND CARE.
--- NOTE | 2016-12-20 17:05 | NUR ---
NOTE PT STABLE, RESTING IN BED AT THIS TIME. NO NEEDS NOTED. FAMILY MEMBER CAME TO SEE PT AND VISITED FOR SOME TIME. PT WAS PLEASED. IVF'S INFUSING WELL. CALL LIGHT WITHIN REACH.
--- NOTE | 2016-12-20 18:20 | NUR ---
NOTE PT SITTING UP IN BED EATING EATING HIS DINNER. PT'S DAUGHTER AT BEDSIDE ASSISTING PT IN EATING HIS DINNER. PT WAS CHECKED ON Q1' AND PRN FOR NEEDS AND CARE ALL SHIFT. IVF'S INFUSING THROUGH LEFT IV SITE. NO SOB/RESP DISTRESS OR PAIN/DISCOMFORT NOTED. PT MAINTAINED WITH SAFETY PRECAUTIONS ALL SHIFT. CALL LIGHT WITHIN REACH.
--- NOTE | 2016-12-20 19:20 | NUR ---
ROUNDS: change of shift endorsed by nurse Daksha pt. awake, alert, oriented. denies any discomfort. IVF patent, NS @ 100 cc/hr. call light within reach. at bedside. Addendum: 12/20/16 at 2002 by Estrellita Bauer RN [facility]
--- NOTE | 2016-12-20 19:25 | NUR ---
ROUNDS: change of shift, pt. awake but non verbal. pt. daughter at bedside. IVF infusing, guan cath in place. call light within reach. observed for contact isolation for MRSA nares.
[2016-12-20] MEDS: VANCOMYCIN HCL 750 MG in NS 250 ML IV SCH (20:29)
--- NOTE | 2016-12-20 21:30 | NUR ---
ROUNDS: scheduled meds given, crushed pill and tolerated well, aspiration precaution observed. pt. non-verbal, moans at times.
--- NOTE | 2016-12-20 23:53 | NUR ---
ROUNDS: pt.sleeping when made rounds. in no acute distress. call light within reach. kept warm and comfortable.
[2016-12-21 00:52] VITALS: BP 123/66; PULSE 94; RESP 18; TEMP 98.4; O2SAT 97
--- NOTE | 2016-12-21 00:53 | NUR ---
ROUNDS: pt. sleeping. cardiac pattern on sinus rhythm.
--- NOTE | 2016-12-21 02:34 | NUR ---
RN NOTES: checked pt. sound asleep. no signs of distress.
--- NOTE | 2016-12-21 04:24 | NUR ---
ROUNDS: no change in condition status. sleeping soundly.
--- NOTE | 2016-12-21 05:46 | NUR ---
ROUNDS: awakened for due med, still sleepy. on seizure precautions, pads on side rails in place. kept O2 all night, no shortness of breath.
[2016-12-21] MEDS: CYCLOBENZAPRINE HCL 10 MG TABLET (FLEXERIL) PO SCH ×3 (05:49→21:36)
--- NOTE | 2016-12-21 06:34 | NUR ---
CLOSING NOTES: pt. went back to sleep after med given. IVF patent, guan cath in place. observed contact isolation for MRSA of nares. for further care and assistance. on aspiration precautions.will endorse to incoming shift.
[2016-12-21 06:45] VITALS: BP 126/70; PULSE 96; RESP 18; TEMP 98.2; O2SAT 95
[2016-12-21 07:01] LABS: CALCIUM 8.9 mg/dL (8.4-11.0); CREATININE 0.85 mg/dL (0.55-1.30); POTASSIUM 3.2 mmol/L (3.5-5.1)
[2016-12-21 07:10] LABS: BASOPHILS % (AUTO) 0.7 % (0.0-2.0); EOSINOPHILS # (AUTO) 0.1 K/uL (0.0-0.4); EOSINOPHILS % (AUTO) 1.6 % (0.0-4.0); LYMPHOCYTES # (AUTO) 0.8 K/uL (1.0-5.5); LYMPHOCYTES % (AUTO) 15.5 % (20.5-51.5); MONOCYTES # (AUTO) 0.5 K/uL (0.0-1.0); MONOCYTES % (AUTO) 9.8 % (1.7-9.3); NEUTROPHILS % (AUTO) 72.4 % (40.0-70.0); PLATELET COUNT (AUTO) 183 K/uL (130-430); WHITE BLOOD COUNT (AUTO) 5.4 K/uL (4.8-10.8)
[2016-12-21 07:13] LABS: HEMATOCRIT 35.4 % (36-54); HEMOGLOBIN 11.9 g/dL (14.0-18.0); MEAN CORPUSCULAR HEMOGLOBIN 29 pg (27-31); MEAN CORPUSCULAR HGB CONC 34 % (32-36); MEAN CORPUSCULAR VOLUME 86 fL (79.0-98.0); RED CELL DISTRIBUTION WIDTH 13.8 % (9.0-15.0)
--- NOTE | 2016-12-21 07:50 | NUR ---
AM ASSESSMENT. PT AWAKE, AND ALERT, WITH RIGHT SIDE FACIAL DROOPING, REPOSITIONED UPRIGHT FOR BREAKFAST, GENERALIZED WEAKNESS, LEFT ARM ACTIVE, UNABLE TO FEED HIMSELF, STAFF AT BEDSIDE, CAREFULLY FED PT, SMALL APPETITE OBSERVED THIS MORNING, CONTINUE TO MONITOR.
[2016-12-21 08:00] VITALS: BP 147/80; PULSE 103; RESP 18; TEMP 96.6; O2SAT 98
[2016-12-21] MEDS: TAMSULOSIN HCL 0.4 MG CAP PO SCH (08:26)
[2016-12-21] MEDS: METOPROLOL TARTRATE 25 MG TABLET PO SCH ×2 (08:26→21:37)
[2016-12-21] MEDS: LEVOFLOXACIN 500 MG/D5W 100 ML IV SCH (08:26)
[2016-12-21] MEDS: amLODIPine BESYLATE 10 MG TABLET PO SCH (08:27)
[2016-12-21] MEDS: HEPARIN SODIUM,PORCINE 5000 UNITS/ML VIAL SUBCUT SCH ×2 (08:28→21:41)
[2016-12-21] MEDS: MEMANTINE HCL 5 MG TABLET PO SCH (08:36)
[2016-12-21] MEDS: LIDOCAINE PATCH 5% 1 EA TP SCH (08:36)
[2016-12-21] MEDS ORDERED: POTASSIUM CHLORIDE 40 MEQ, LIDOCAINE JECT 2% PF 100 MG 50 MG in NS 250 ML IV ONE (09:15)
[2016-12-21] MEDS: VANCOMYCIN HCL 750 MG in NS 250 ML IV SCH ×2 (09:55→20:51)
[2016-12-21] MEDS: MUPIROCIN 2% TOPICAL OINTMENT 22 GM TP SCH ×2 (10:40→21:42)
[2016-12-21 12:25] VITALS: BP 137/68; PULSE 87; RESP 17; TEMP 98; O2SAT 97
[2016-12-21] MEDS: D5NS 1,000 ML IV SCH (12:41)
--- NOTE | 2016-12-21 12:41 | NUR ---
K LEVEL 3.2, POTASSIUM RIDER 40 MEQ ADMINISTERED ORDERED, OBSERVED PT FOR ANY IV INFILTRATIONS.
[2016-12-21 16:20] VITALS: BP 101/79; PULSE 102; RESP 17; TEMP 98; O2SAT 98
--- NOTE | 2016-12-21 17:15 | NUR ---
IV. PT COMPLETED K RIDER, NO INFILTRATION SEEN TO IV SITE.
--- NOTE | 2016-12-21 18:15 | NUR ---
FAMILY. PT'S SON AND DAUGHTER HERE, UPDATE GIVEN ON HIS STATUS, QUESTIONS ON MRSA WERE RAISED AND ANSWERED.
[2016-12-21 19:30] VITALS: BP 104/72; PULSE 96; RESP 18; TEMP 98.1; O2SAT 98
--- NOTE | 2016-12-21 19:30 | NUR ---
notes received the pt from the day nurse.pt a/a/ox2 family at the bedside.pt in isolation for mrsa of the nares.iv infusing well into lt wrist,no redness or swelling noted.monitor in place and shows SR seizure precautions in effect.pt repositioned with pillow support.lidocaine patch removed.call light within reach .safety measures in progress ,continue to monitor.
--- NOTE | 2016-12-21 21:30 | NUR ---
noted pt answers simple questions asked no c/o pain or discomfort.continue to monitor.
--- NOTE | 2016-12-21 23:17 | NUR ---
notes pt resting with eyes closed,call light within reach.continue to monitor.
[2016-12-22] VITALS (7 sets, daily range): BP systolic 123–139; BP diastolic 68–85; PULSE 88–107; RESP 16–18; TEMP 96.4–97.7; O2SAT 96–100
--- NOTE | 2016-12-22 01:13 | NUR ---
notes. pt sleeping ,no distress noted.continue to monitor.
[2016-12-22] MEDS: D5NS 1,000 ML IV SCH ×3 (03:15→13:15)
--- NOTE | 2016-12-22 03:50 | NUR ---
notes pt incontinent of stool,pt cleaned linen changed.repositioned with pillow support.continue to monitor.
[2016-12-22] MEDS: CYCLOBENZAPRINE HCL 10 MG TABLET (FLEXERIL) PO SCH ×3 (05:29→21:11)
--- NOTE | 2016-12-22 05:30 | NUR ---
notes pt sleeping,no distress noted.continue to monitor.
--- NOTE | 2016-12-22 06:44 | NUR ---
closing notes Flexeril crushed and given with apple sauce as ordered,pt tolerated well.will endorse the care of the pt to the day nurse.
[2016-12-22 07:07] LABS: BASOPHILS % (AUTO) 0.8 % (0.0-2.0); EOSINOPHILS # (AUTO) 0.1 K/uL (0.0-0.4); EOSINOPHILS % (AUTO) 1.3 % (0.0-4.0); HEMATOCRIT 34.3 % (36-54); HEMOGLOBIN 11.8 g/dL (14.0-18.0); LYMPHOCYTES # (AUTO) 1.1 K/uL (1.0-5.5); LYMPHOCYTES % (AUTO) 19.5 % (20.5-51.5); MEAN CORPUSCULAR HEMOGLOBIN 29 pg (27-31); MEAN CORPUSCULAR HGB CONC 34 % (32-36); MEAN CORPUSCULAR VOLUME 86 fL (79.0-98.0); MONOCYTES # (AUTO) 0.5 K/uL (0.0-1.0); MONOCYTES % (AUTO) 9.5 % (1.7-9.3); NEUTROPHILS # (AUTO) 3.7 K/uL (1.8-7.7); NEUTROPHILS % (AUTO) 68.9 % (40.0-70.0); PLATELET COUNT (AUTO) 179 K/uL (130-430); RED BLOOD CELL COUNT(AUTO) 4.01 MIL/uL (4.2-6.2); RED CELL DISTRIBUTION WIDTH 13.6 % (9.0-15.0); WHITE BLOOD COUNT (AUTO) 5.4 K/uL (4.8-10.8)
[2016-12-22 07:09] LABS: CALCIUM 8.9 mg/dL (8.4-11.0); CREATININE 0.92 mg/dL (0.55-1.30); POTASSIUM 3.2 mmol/L (3.5-5.1)
--- NOTE | 2016-12-22 08:11 | NUR ---
OPENING NOTE: RECEIVED REPORT FROM NETWORK ENGINEER NURSE. PATIENT RESTING COMFORTABLY. BED IN LOWEST POSITION, BED ALARM ON, CALL LIGHT WITHIN REACH, AND SEIZURE PADS APPLIED TO SIDE RAILS. NO SIGNS OF DISTRESS NOTED AT THIS TIME. WILL CONTINUE TO MONITOR FOR CHANGES IN STATUS.
[2016-12-22] MEDS ORDERED: POTASSIUM CHLORIDE 40 MEQ, LIDOCAINE JECT 2% PF 100 MG 50 MG in NS 250 ML IV ONE (09:15)
--- NOTE | 2016-12-22 10:00 | NUR ---
NOTE PATIENT'S VITAL SIGNS WERE WITHIN NORMAL RANGE, ALL MORNING MEDICATIONS WERE GIVEN WITH NO PROBLEMS, NO COMPLAINTS OF PAIN AND NEW IV WAS PLACED ON LEFT FOREARM WITH NO COMPLICATIONS. BED IS IN LOWEST POSITION AND BED ALARM IS ON AND CALL LIGHT IS WITHIN REACH. WILL CONTINUE TO MONITOR.
[2016-12-22] MEDS: LEVOFLOXACIN 500 MG/D5W 100 ML IV SCH (10:25)
[2016-12-22] MEDS: VANCOMYCIN HCL 750 MG in NS 250 ML IV SCH ×2 (10:25→21:54)
[2016-12-22] MEDS: METOPROLOL TARTRATE 25 MG TABLET PO SCH ×2 (10:27→20:36)
[2016-12-22] MEDS: MEMANTINE HCL 5 MG TABLET PO SCH (10:27)
[2016-12-22] MEDS: TAMSULOSIN HCL 0.4 MG CAP PO SCH (10:28)
[2016-12-22] MEDS: amLODIPine BESYLATE 10 MG TABLET PO SCH (10:30)
[2016-12-22] MEDS: HEPARIN SODIUM,PORCINE 5000 UNITS/ML VIAL SUBCUT SCH ×2 (10:31→20:38)
[2016-12-22] MEDS: LIDOCAINE PATCH 5% 1 EA TP SCH (10:31)
[2016-12-22] MEDS: MUPIROCIN 2% TOPICAL OINTMENT 22 GM TP SCH ×2 (10:36→20:36)
--- NOTE | 2016-12-22 12:00 | NUR ---
NOTE PATIENT IS RESTING IN BED COMFORTABLY WITH NO COMPLAINTS OF PAIN, NO NOTED DISTRESS, DISCOMFORT OR SOB. BED ALARM IS ON AND BED IS IN LOWEST POSITION AND CALL LIGHT IS WITHIN REACH. PATIENT WAS REPOSITIONED AND TOLERATED IT WELL. WILL CONTINUE TO MONITOR.
--- NOTE | 2016-12-22 14:00 | NUR ---
NOTE PATIENT IS RESTING IN BED COMFORTABLY IN BED WITH NO COMPLAINTS OF PAIN, NO NOTED DISTRESS, DISCOMFORT OR SOB. BED ALARM IS ON AND BED IS IN LOWEST POSITION. CALL LIGHT IS WITHIN REACH AND FAMILY IS AT BEDSIDE. WILL CONTINUE TO MONITOR.
--- NOTE | 2016-12-22 16:00 | NUR ---
NOTE PATIENT IS RESTING IN BED COMFORTABLY WITH NO COMPLAINTS OF PAIN, NO NOTED DISTRESS, DISCOMFORT OR SOB. BED ALARM IS ON AND IS IN LOWEST POSITION. CALL LIGHT IS WITHIN REACH AND FAMILY IS AT BEDSIDE, WILL CONTINUE TO MONITOR.
--- NOTE | 2016-12-22 18:51 | NUR ---
CLOSING NOTE PATIENT IS RESTING IN BED COMFORTABLY WITH NO COMPLAINTS OF PAIN, NO NOTED DISTRESS, DISCOMFORT OR SOB. PATIENT IS NONVERBAL AND HAS SOME RIGHT SIDED WEAKNESS. BED ALARM IS ON AND BED IS IN LOWEST POSITION. FAMILY IS AT BEDSIDE AND WILL GIVE REPORT TO NIGHT NURSE.
--- NOTE | 2016-12-22 19:32 | NUR ---
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
--- NOTE | 2016-12-22 21:16 | NUR ---
NOTES MEDICATION CRUSHED AND GIVEN WITH APPLE SAUCE.PT TOLERATED WELL.CALL LIGHT WITHIN REACH.CONTINUE TO MONITOR.
--- NOTE | 2016-12-22 23:44 | NUR ---
notes chg bath given by the collection systems administrator.pt repositioned with pillow support.continue to monitor.
[2016-12-23 01:05] VITALS: BP 160/87; PULSE 113; RESP 14; TEMP 97.4; O2SAT 97
--- NOTE | 2016-12-23 01:30 | NUR ---
NOTES PT REPOSITIONED WITH PILLOW SUPPORT.CALL LIGHT WITHIN REACH.CONTINUE TO MONITOR.
--- NOTE | 2016-12-23 03:28 | NUR ---
NOTES PT SLEEPING,NO DISTRESS NOTED,CONTINUE TO MONITOR.
[2016-12-23 03:55] VITALS: BP 138/74; PULSE 101; RESP 15; TEMP 97; O2SAT 96
--- NOTE | 2016-12-23 05:09 | NUR ---
NOTES PT REPOSITIONED WITH PILLOW SUPPORT.NO DISTRESS NOTED.CONTINUE TO MONITOR.
[2016-12-23] MEDS: CYCLOBENZAPRINE HCL 10 MG TABLET (FLEXERIL) PO SCH ×3 (05:40→21:14)
--- NOTE | 2016-12-23 06:11 | NUR ---
closing notes. pt resting with eyes closed.chg bath was given pt appears comfortable.will endorse the care of the pt to the day nurse.
[2016-12-23 06:51] LABS: BASOPHILS % (AUTO) 0.8 % (0.0-2.0); EOSINOPHILS # (AUTO) 0.1 K/uL (0.0-0.4); EOSINOPHILS % (AUTO) 2.1 % (0.0-4.0); HEMATOCRIT 37.4 % (36-54); HEMOGLOBIN 12.6 g/dL (14.0-18.0); LYMPHOCYTES # (AUTO) 1.1 K/uL (1.0-5.5); MEAN CORPUSCULAR HEMOGLOBIN 29 pg (27-31); MEAN CORPUSCULAR HGB CONC 34 % (32-36); MEAN CORPUSCULAR VOLUME 86 fL (79.0-98.0); MONOCYTES # (AUTO) 0.5 K/uL (0.0-1.0); NEUTROPHILS % (AUTO) 69.1 % (40.0-70.0); PLATELET COUNT (AUTO) 193 K/uL (130-430); RED BLOOD CELL COUNT(AUTO) 4.34 MIL/uL (4.2-6.2); RED CELL DISTRIBUTION WIDTH 13.7 % (9.0-15.0); WHITE BLOOD COUNT (AUTO) 5.7 K/uL (4.8-10.8)
[2016-12-23 06:58] LABS: CALCIUM 9.2 mg/dL (8.4-11.0); CREATININE 0.92 mg/dL (0.55-1.30); POTASSIUM 3.1 mmol/L (3.5-5.1)
--- NOTE | 2016-12-23 07:30 | NUR ---
AM ROUNDS PATIENT RESTING IN BED, AWAKE, ALERT AND ORIENTED X1, REORIENTED TO PLACE, TIME AND EVENT, NO SIGNS OF PAIN, ASSESSMENT COMPLETE, PATIENT SKIN IS INTACT, JAIME CATHETER NOTED DRAINING TO GRAVITY, BED IN LOWEST POSITION, THREE SIDE RAILS UP, BED ALARM ON, FALL, ASPIRATION, SEIZURE AND ISOLATION PRECAUTIONS IN PLACE, WILL CONTINUE TO MONITOR.
[2016-12-23 08:00] VITALS: BP 150/80; PULSE 87; RESP 16; TEMP 98; O2SAT 98
[2016-12-23] MEDS: TAMSULOSIN HCL 0.4 MG CAP PO SCH (08:42)
[2016-12-23] MEDS: amLODIPine BESYLATE 10 MG TABLET PO SCH (08:42)
[2016-12-23] MEDS: MEMANTINE HCL 5 MG TABLET PO SCH (08:42)
[2016-12-23] MEDS: VANCOMYCIN HCL 750 MG in NS 250 ML IV SCH (08:42)
[2016-12-23] MEDS: METOPROLOL TARTRATE 25 MG TABLET PO SCH ×2 (08:43→21:18)
[2016-12-23] MEDS: D5NS 1,000 ML IV SCH ×2 (08:43→19:39)
[2016-12-23] MEDS: LIDOCAINE PATCH 5% 1 EA TP SCH (08:44)
[2016-12-23] MEDS: HEPARIN SODIUM,PORCINE 5000 UNITS/ML VIAL SUBCUT SCH ×2 (08:44→21:19)
[2016-12-23] MEDS: MUPIROCIN 2% TOPICAL OINTMENT 22 GM TP SCH ×2 (08:45→21:14)
--- NOTE | 2016-12-23 08:45 | NUR ---
RN ROUNDS PATIENT RESTING IN BED, AWAKE, NO SIGNS OF PAIN NOTED ,EDUCATED ON MEDICATIONS, PATIENT IS UNABLE TO VERBALIZE UNDERSTANDING AT THIS TIME, TOLERATED MEDICATION ADMINISTRATION WELL, ASPIRATION PRECAUTIONS IN PLACE, WILL CONTINUE TO MONITOR, BED IN LOWEST POSITION, THREE SIDE RAILS UP, BED ALARM ON, FALL, SEIZURE AND ISOLATION PRECAUTIONS IN PLACE, WILL CONTINUE TO MONITOR.
--- NOTE | 2016-12-23 10:30 | NUR ---
RN ROUNDS PATIENT RESTING IN BED, EYES CLOSED, BREATHING IS EVEN AND UNLABORED, NO SIGNS OF DISTRESS, BED IN LOWEST POSITION, THREE SIDE RAILS UP, BED ALARM ON, FALL ,ASPIRATION, ISOLATION AND SEIZURE PRECAUTIONS IN PLACE, WILL CONTINUE TO MONITOR.
[2016-12-23 11:29] VITALS: BP 146/77; PULSE 86; RESP 19; TEMP 97.1; O2SAT 96
--- NOTE | 2016-12-23 12:00 | NUR ---
RN ROUNDS PATIENT RESTING IN BED ,EYES CLOSED, BREATHING IS EVEN AND UNLABORED, NO SIGNS OF DISTRESS, BED IN LOWEST POSITION, THREE SIDE RAILS UP, BED ALARM ON, FALL, ASPIRATION, SEIZURE AND ISOLATION PRECAUTIONS IN PLACE, BED CLOSE TO NURSE'S STATION, WILL CONTINUE TO MONITOR.
--- NOTE | 2016-12-23 13:30 | NUR ---
LUNCH NOTIFIED BY CLOTH WINDER THAT PATIENT ONLY HAD 10% OF LUNCH TODAY, PATIENT REFUSES TO EAT, WILL NOTIFY DIETARY AND MD NEEDED, WILL ALSO TRY TO FEED THE PATIENT.
--- NOTE | 2016-12-23 14:42 | NUR ---
Nutrition F/U Admitting Diagnosis UTI, metabolic encephalopathy, sepsis, moderate malnutrition Reviewed Pertinent Medical/Surgical Hx Primary RN and FUR OPERATOR Medical Record Medical History Comment: HTN, possible dementia, BPH, chronic pain, muscle spasms per MD notes Pt is from [facility] Subjective Information Pt seen resting in bed at time of RD visit. Pt unable to complete RD verbal interview d/t condition. Per RN, pt hasn't been eating well today, confirmed by FUR OPERATOR report. FUR OPERATOR reports that pt ate 60% of breakfast yesterday, but today, has been refusing meals. RN denied any pending plans/procedures. Per EMR, PO Intakes: 39% average x4 meals. Abd is soft and non-distended w/ active bowel sounds. I/O: 1500/2000 (-500 ml) per 12 hours. Pt is not meeting optimal nutritional needs. Current diet is appropriate and consistent w/ ST rec 12/19/16. Pt is not appropriate for nutrition education. Current Diet Order/Nutrition Support Pureed, nectar thick liquids x4 days Patient/Significant Other Unable To Verbalize Education Provided Not Indicated Pertinent Medications Reviewed Pertinent Labs Reviewed Height (Feet) 5 feet Height (Inches) 7.00 inches Weight (Pounds) 139 pounds (admission) BEDSCALE WT: 157 lb, 71 kg (12/23/16) Weight (Calculated Kilograms) 63.385065 kilograms Patient Weight 63.049 kg Body Mass Index 21.77 kg/m2 %IBW [address] [place]/Adjusted Body Weight IBW: 148 lb, 67 kg Recent Weight Change Unknown Weight Status Appropriate Gastrointestinal Symptoms None Last BM Dec 23, 2016 Food Allergies None per pt report Usual Diet At Home Unable to retrieve in pt's hard chart per RD chart review Skin Integrity Comment: Jefry scale: 15; no skin issues noted per nursing notes Estimated Energy Expenditure (kcals/day) 6221-8058 kcal/day (BEE x 1.4-2 CBW for possible stroke, sepsis) Estimated Protein Required (g/day) 79-126 gm/day (1.25-2 gm/kg CBW for possible stroke, sepsis) Estimated Fluid Required (l/day) 1.9-2.7 L/day (1 ml/kcal/day for maintenance) Problem/Etiology/Signs/Symptoms Increased nutritional needs related to metabolic demands as evidenced by estimated nutritional requirements for possible stroke and sepsis. *ongoing Expected Outcomes/Goals - Monitor advancement of diet w/ goal of pt meeting at least 50% of estimated nutritional needs, labs trending WNL, normal GI function, and skin integrity/wt maintenance Dietitian Recommendations * Recommend continuing pureed, nectar thick liquid diet per MD Follow Up High Risk: F/U in 2-3 days
[2016-12-23] MEDS: POTASSIUM CHLORIDE 10 MEQ TAB.PRT.SR PO PRN (14:45)
--- NOTE | 2016-12-23 14:45 | NUR ---
RN ROUNDS PATIENT MOVED ROOMS, STABLE CONDITION, EDUCATED PATIENT ON MEDICATIONS AND POTENTIAL SIDE EFFECTS, PATIENT UNABLE VERBALIZE UNDERSTANDING, TOLERATED MEDICATION ADMINISTRATION WELL, PATIENT ALSO FINISHED HIS APPLESAUCE AT THIS TIME AND WAS GIVEN WATER PER REQUEST, NO OTHER NEEDS AT THIS TIME, BED IN LOWEST POSITION, THREE SIDE RAILS UP, BED ALARM ON, FALL, ASPIRATION, SEIZURE AND ISOLATION PRECAUTIONS IN PLACE, BED CLOSE TO NURSE'S STATION, WILL CONTINUE TO MONITOR.
[2016-12-23 15:24] VITALS: BP 150/76; PULSE 99; RESP 17; TEMP 96.9; O2SAT 96
--- NOTE | 2016-12-23 16:23 | NUR ---
RN ROUNDS PATIENT RESTING IN BED,AWAKE, NO SIGNS OF PAIN, NO SIGNS OF DISTRESS, NO OTHER NEEDS AT THIS TIME, BED IN LOWEST POSITION, THREE INSIDE SALES CONSULTANT RAILS UP, BED ALARM ON, FALL, ASPIRATION, SEIZURE AND ISOLATION PRECAUTIONS IN PLACE, BED CLOSE TO NURSES'S STATION, WILL CONTINUE TO MONITOR.
--- NOTE | 2016-12-23 16:59 | NUR ---
DISCHARGE PLANNING Called and spoke with patient daughter Anne [phone] regarding discharge planning. Anne confirmed family did not want patient to return back to [facility]. Anne did request for Dr Patel to call her to discuss plan of care as she is unable to meet with him when he sees patient. Anne was agreeable with SNF if needed but wanted to speak with Dr Patel before making any discharge planning decisions.
--- NOTE | 2016-12-23 17:48 | NUR ---
RN ROUNDS PATIENT DAUGHTER MED AT THE BEDSIDE, DISCUSSED PLAN OF CARE, INFORMED HER THAT A NOTE HAS BEEN LEFT FOR DR BRISENO TO CALL HER REGARDING UPDATES AND DISCHARGE PLAN OF CARE, NO OTHER NEEDS AT THIS TIME, PATIENT IS RESTING IN BED, AWAKE, NO SIGNS OF DISTRESS, BED IN LOWEST POSITION, THREE SIDE RAILS UP, BED ALARM ON, FALL, ASPIRATION, SEIZURE AND ISOLATION PRECAUTIONS IN PLACE, BED CLOSE TO NURSE'S STATION, WILL CONTINUE TO MONITOR.
--- NOTE | 2016-12-23 18:17 | NUR ---
CLOSING NOTES PATIENT RESTING IN BED, AWAKE, BEING ASSISTED BY DAUGHTER TO EAT DINNER, ASPIRATION PRECAUTIONS IN PLACE, ALL NEEDS MET, WILL ENDORSE REPORT TO NOC SHIFT NURSE, BED IN LOWEST POSITION, THREE SIDE RAILS UP, BED ALARM ON, FALL, SEIZURE AND ISOLATION PRECAUTIONS IN PLACE, BED CLOSE TO NURSE'S STATION.
--- NOTE | 2016-12-23 19:32 | NUR ---
OPENING NOTE Pt. and report received from day shift nurse. Pt. is awake, and resting comfortably in bed with no s/s of acute distress. Respirations are even and unlabored. IV site to left f/a 22g is dry intact and infusing IV fluids as ordered. Colindres catheter is secured and intact draining urine by gravity. Bed alarm on. Plan of care discussed but unable to assess pt.'s response to teaching. Educated pt. on how to use call light for needs but is unable. Room near nurses station. Safety and seizure precautions in place. No s/s of seizure activity noted at this time. Will continue to monitor.
[2016-12-23 20:00] VITALS: BP 132/69; PULSE 92; RESP 20; TEMP 97.5; O2SAT 96
[2016-12-23] MEDS: VANCOMYCIN HCL 1,250 MG in NS 250 ML IV SCH (21:14)
--- NOTE | 2016-12-23 22:00 | NUR ---
DUE MEDS Latey Due meds administered as ordered. Pt. tolerated well, crushed with applesauce, safe swallow precautions maintained. HOB elevated. No s/s of seizure activity noted at this time. Safety precautions in place. Bed alarm on. Room near nurses station. Safety and isolation precautions in place. Will continue to monitor. Addendum: 12/24/16 at 0033 by Stacy Singer RN DUE MEDS Late entry due to pt. care. Due meds administered as ordered. Pt. tolerated well, crushed with applesauce, safe swallow precautions maintained. HOB elevated. No s/s of seizure activity noted at this time. Safety precautions in place. Bed alarm on. Room near nurses station. Safety and isolation precautions in place. Will continue to monitor.
--- NOTE | 2016-12-24 00:26 | NUR ---
ROUNDS Pt. is resting quietly in bed with no s/s of acute distress. No s/s of seizure activity at this time. Safety and isolation precautions in place. Bed alarm on. Will continue to monitor.
[2016-12-24 00:36] VITALS: BP 131/66; PULSE 87; RESP 19; TEMP 96.8; O2SAT 97
--- NOTE | 2016-12-24 02:22 | NUR ---
ROUNDS Pt. is resting quietly in bed with eyes closed. Respirations are even and unlabored with visible chest rise and fall. No s/s of acute distress. No s/s of seizure activity noted at this time. Safety, seizure, and isolation precautions in place. Call light to left hand but pt. unable. Bed alarm on. Room near nurses station. Will continue to monitor.
--- NOTE | 2016-12-24 04:19 | NUR ---
ROUNDS Pt. is resting quietly in bed with eyes closed. No s/s of acute distress. No s/s of seizure activity noted at this time. Safety, seizure, and isolation precautions in place. Bed alarm on. Room near nurses station. Will continue to monitor.
[2016-12-24] MEDS: D5NS 1,000 ML IV SCH ×3 (05:15→20:42)
[2016-12-24] MEDS: CYCLOBENZAPRINE HCL 10 MG TABLET (FLEXERIL) PO SCH ×3 (05:15→23:55)
[2016-12-24 06:01] VITALS: BP 150/70; PULSE 94; RESP 17; TEMP 97; O2SAT 98
--- NOTE | 2016-12-24 06:12 | NUR ---
INCONTINENCE CARE/DUE MEDS Due med administered as ordered. Pt. tolerated well crushed with apple sauce, swallow precautions maintained. Incontinence and skin care provided due to bowel movement. No s/s of acute distress at this time. Vitals stable. Safety, seizure and isolation precautions in place. Bed alarm on. Room near nurses station. Will endorse care to oncoming day shift nurse.
[2016-12-24 08:10] VITALS: BP 149/80; PULSE 93; RESP 18; TEMP 98; O2SAT 97
[2016-12-24] MEDS: LIDOCAINE PATCH 5% 1 EA TP SCH (09:18)
[2016-12-24] MEDS: VANCOMYCIN HCL 1,250 MG in NS 250 ML IV SCH ×2 (09:18→20:42)
[2016-12-24] MEDS: METOPROLOL TARTRATE 25 MG TABLET PO SCH ×2 (09:19→20:43)
[2016-12-24] MEDS: MEMANTINE HCL 5 MG TABLET PO SCH (09:19)
[2016-12-24] MEDS: amLODIPine BESYLATE 10 MG TABLET PO SCH (09:19)
[2016-12-24] MEDS: MUPIROCIN 2% TOPICAL OINTMENT 22 GM TP SCH ×2 (09:19→23:55)
[2016-12-24] MEDS: TAMSULOSIN HCL 0.4 MG CAP PO SCH (09:19)
[2016-12-24] MEDS: HEPARIN SODIUM,PORCINE 5000 UNITS/ML VIAL SUBCUT SCH ×2 (09:20→20:45)
[2016-12-24] MEDS ORDERED: POTASSIUM CHLORIDE 20 MEQ/PKT PACKET PO SCH (10:00)
--- NOTE | 2016-12-24 11:00 | NUR ---
CALLED PHARMACY REGARDING POTASSIUM REPLACEMENT NOT BEING AVAILABLE IN THE [facility] PHARMACIST TO FOLLOW UP.
--- NOTE | 2016-12-24 11:00 | NUR ---
RN ROUNDS PATIENT RESTING IN BED, EYES CLOSED, BREATHING IS EVEN AND UNLABORED, NO SIGNS OF DISTRESS, BED IN LOWEST POSITION, THREE SIDE RAILS UP, BED ALARM ON, FALL, ASPIRATION, SEIZURE AND ISOLATION PRECAUTIONS IN PLACE, BED CLOSE TO NURSE'S STATION, WILL CONTINUE TO MONITOR.
--- NOTE | 2016-12-24 11:01 | NUR ---
DISCHARGE PLANNING DC planning order for SNF placement. LEXIE spoke with patient daughter Anne. Faxed as requested SNF referral to [phone] [phone]. Will follow up. Addendum: 12/24/16 at 1424 by Ingrid HSU Spoke with Dianelys in admitting at [facility] facility currently has no ISO beds available. Dianelys advised DCP to follow up in AM. Returned call to Sam in admitting at [facility] who unable to accept patient due to not contracted with . Sam stated facility needs to be contracted with both the health plan and . Addendum: 12/24/16 at 1550 by Ingrid Wright DP Received call from Altagracia at [facility] patient denied not contracted with [facility].
--- NOTE | 2016-12-24 11:03 | NUR ---
Discharge Planning Discussed DC plan with Dr Patel in nurses' station. Dr Patel stated that he had called and spoken with patient's daughter. He had suggested 3 different SNFs that are close to family and daughter was agreeable however I told Dr Patel that we would need to find out if any of these SNFs are contracted with patient's insurance. I called and spoke with patient's Daughter, Anne [phone], who stated that she did speak with Dr Patel. I told Anne that according to the list that we have, patient is contracted with the following SNFs: [facility]. Anne stated that her father had been at [facility] in the past and she believes that they are also contracted with insurance. I told Anne that we would send an inquiry to [facility]. I also told her that [facility] would probably be the next closest facility. CM will call daughter back as soon as response is received from [facility]. I tried contacted LEXIE @ [facility] to find out who is at risk for SNF placement and where auth would be coming from. Message was left with LEXIE Copeland @ [facility] [phone]. Also reached out to Camila OWEN @ [facility], , who stated that auth will come from [facility].
[2016-12-24 12:00] VITALS: BP 97/58; PULSE 91; RESP 20; TEMP 97.7; O2SAT 99
[2016-12-24] MEDS ORDERED: POTASSIUM CHLORIDE 20 MEQ/PKT PACKET PO ONE (12:00)
--- NOTE | 2016-12-24 12:46 | NUR ---
PATIENT REFUSING MEDICATION/LUNCH INFORMED BY NEWSPAPER EDITOR AND ADVERTISING ACCOUNT MANAGER THAT PATIENT ONLY TOOK A FEW BITES OF FOOD AND THEN REFUSED, INFORMED DIETARY AND ALREADY INFORMED MD IN AM.
--- NOTE | 2016-12-24 14:52 | NUR ---
RN ROUNDS PATIENT RESTING IN BED, EYES CLOSED, BREATHING IS EVEN AND UNLABORED, NO SIGNS OF DISTRESS, FAMILY AT THE BEDSIDE, UPDATES GIVEN, PATIENT REFUSES TO EAT/TAKE MEDICATIONS SOMETIMES, NO OTHER NEEDS AT THIS TIME, BED IN LOWEST POSITION, THREE SIDE RAILS UP, BED ALARM ON, FALL, SEIZURE, ISOLATION, ASPIRATION PRECAUTIONS IN PLACE, BED CLOSE TO NURSE'S STATION, WILL CONTINUE TO MONITOR.
--- NOTE | 2016-12-24 16:30 | NUR ---
RN ROUNDS PATIENT RESTING IN BED, EYES CLOSED, BREATHING IS EVEN AND UNLABORED, NO SIGNS OF DISTRESS, WILL CONTINUE TO MONITOR, BED IN LOWEST POSITION, THREE SIDE RAILS UP, BED ALARM ON, FALL, ASPIRATION, ISOLATION AND SEIZURE PRECAUTIONS IN PLACE, BED CLOSE TO NURSE'S STATION.
--- NOTE | 2016-12-24 17:37 | NUR ---
RN ROUNDS PATIENT IS AWAKE, NO SIGNS OF PAIN, NO DISTRESS, ROADMASTER ASSISTING THE PATIENT TO EAT DINNER, ASPIRATION PRECAUTIONS IN PLACE, NO OTHER NEEDS AT THIS TIME, BED IN LOWEST POSITION, THREE SIDE RAILS UP, BED ALARM ON, FALL, ASPIRATION, SEIZURE AND ISOLATION PRECAUTIONS IN PLACE, WILL CONTINUE TO MONITOR.
[2016-12-24 17:45] VITALS: BP 99/58; PULSE 94; RESP 20; TEMP 97.5; O2SAT 99
--- NOTE | 2016-12-24 17:46 | NUR ---
PATIENT REFUSING TO EAT AND DRINK
--- NOTE | 2016-12-24 18:39 | NUR ---
CLOSING NOTES PATIENT RESTING IN BED, AWAKE, DENIES FOOD OR WATER AT THIS TIME, WILL ENDORSE REPORT TO NOC SHIFT NURSE,ALL NEEDS MET, BED IN LOWEST POSITION, THREE SIDE RAILS UP, BED ALARM ON, FALL, ASPIRATION, SEIZURE AND ISOLATION PRECAUTIONS IN PLACE, BED CLOSE TO NURSE'S STATION.
[2016-12-24 20:00] VITALS: BP 150/86; PULSE 103; RESP 16; TEMP 98.7; O2SAT 99
--- NOTE | 2016-12-24 20:12 | NUR ---
OPENING NOTES PATIENT IS A/OX1. PATIENT IS BED RESTING. NO SIGNS OF DISTRESS. BREATHING IS NON LABORED. VITAL SIGNS ARE STABLE. IV IS PATENT AND SHOWS NO SIGNS OF COMPLICATIONS. DAUGHTER IS AT BEDSIDE. SAFETY MEASURES ARE IN PLACE. CALL LIGHT IS IN PLACE. WILL CONTINUE TO MONITOR.
[2016-12-24] MEDS: POTASSIUM CHLORIDE 20 MEQ/PKT PACKET PO SCH (20:43)
--- NOTE | 2016-12-24 21:50 | NUR ---
ROUNDS PATIENT IS IN BED RESTING COMFORTABLY. PATIENT WAS GIVEN WATER WITH THICKENED. PATIENT TOLERATED IT WELL.
--- NOTE | 2016-12-25 00:05 | NUR ---
ROUNDS PATIENT WAS GIVEN APPLE SAUCE AND WATER WITH THICKENED. PATIENT TOLERATED IT WELL. WILL CONTINUE TO MONITOR. PATIENT IS RESTING COMFORTABLY. CALL LIGHT IS WITHIN REACH. BED ALARM IS ON.
[2016-12-25 00:19] VITALS: BP 152/76; PULSE 92; RESP 19; TEMP 98.9; O2SAT 96
--- NOTE | 2016-12-25 01:57 | NUR ---
ROUNDS PATIENT IS IN BED SLEEPING. NO SIGNS OF DISTRESS. BREATHING IS NON LABORED. CALL LIGHT IS WITHIN REACH. BED ALARM IS ON. WILL CONTINUE TO MONITOR.
[2016-12-25 03:34] VITALS: BP 158/73; PULSE 94; RESP 19; TEMP 98.9; O2SAT 96
--- NOTE | 2016-12-25 04:48 | NUR ---
ROUNDS PATIENT IS IN BED SLEEPING. NO SIGNS OF DISTRESS. BREATHING IS NON LABORED. SAFETY MEASURES ARE IN PLACE. WILL CONTINUE TO MONITOR.
--- NOTE | 2016-12-25 05:40 | NUR ---
ROBERT CARE PATIENT HAD A BOWEL MOVEMENT. DOM LEVINE ASSISTED WITH CARE. PATIENT IS IN BED RESTING.
[2016-12-25] MEDS: CYCLOBENZAPRINE HCL 10 MG TABLET (FLEXERIL) PO SCH ×3 (06:00→21:32)
--- NOTE | 2016-12-25 07:57 | NUR ---
CLOSING NOTES PATIENT IS IN BED SLEEPING. NO SIGNS OF DISTRESS. BREATHING IS NON LABORED. IV AND JAIME ARE PATENT AND SHOW NO SIGNS OF COMPLICATIONS. BED ALARM IS ON. SAFETY MEASURES ARE IN PLACE. REPORT GIVEN TO MORNING NURSE.
--- NOTE | 2016-12-25 08:00 | NUR ---
A/OX1, APATHETIC. NO SIGNS OF DISTRESS. BREATHING IS NON LABORED. IV #22 ON LEFT FA, INTACT AND PATENT AND SHOWS NO SIGNS OF COMPLICATIONS. CALL LIGHT IN PLACE, BED LOCKED AND AT LOWEST POSITION, WILL CONTINUE TO MONITOR.
[2016-12-25] MEDS: amLODIPine BESYLATE 10 MG TABLET PO SCH (09:21)
[2016-12-25] MEDS: POTASSIUM CHLORIDE 20 MEQ/PKT PACKET PO SCH ×2 (09:22→21:32)
[2016-12-25] MEDS: TAMSULOSIN HCL 0.4 MG CAP PO SCH (09:22)
[2016-12-25] MEDS: MEMANTINE HCL 5 MG TABLET PO SCH (09:22)
[2016-12-25] MEDS: METOPROLOL TARTRATE 25 MG TABLET PO SCH (09:22)
[2016-12-25] MEDS: HEPARIN SODIUM,PORCINE 5000 UNITS/ML VIAL SUBCUT SCH ×2 (09:24→21:35)
[2016-12-25] MEDS: LIDOCAINE PATCH 5% 1 EA TP SCH (09:24)
[2016-12-25] MEDS: MUPIROCIN 2% TOPICAL OINTMENT 22 GM TP SCH ×2 (09:36→21:34)
[2016-12-25] MEDS: VANCOMYCIN HCL 1,250 MG in NS 250 ML IV SCH ×2 (09:37→21:33)
--- NOTE | 2016-12-25 10:00 | NUR ---
PATIENT IS TURNED AND REPOSITIONED FOR COMFORT.
--- NOTE | 2016-12-25 11:24 | NUR ---
DISCHARGE PLANNING Spoke with Dolores in admitting at [facility] facility has no ISO beds available. Dolores stated facility has anticipated discharges on Th and Fri and advised DCP to follow up in AM. [facility] spoke with LEXIE Hunter who explained [facility] is only at risk for DME all others [facility] at risk. Faxed SNF referral to following contracted facilities: [facility] F[facility] [phone] [facility] [phone] [facility] [phone] [phone] [phone] [facility] [phone] [phone] [phone]. Will follow up. Addendum: 12/25/16 at 1453 by Ingrid Wright DP [facility] SNF- Mikaela stated no male beds [facility] SNF- Shalonda stated no male beds [facility] fax to [phone]- Elizabeth stated they have no isolation beds [facility]- spoke with [facility] full no beds available [facility]-Tracey stated case in review. They will call if they are able to accept patient. [facility]- left voicemail message [facility]- Charlie in admitting who will return call, currently being reviewed by SAMMI. [facility]-Dee Dee in admitting will have DON review and return call with decision. Addendum: 12/25/16 at 1615 by Ingrid Wright DP Spoke with Charlie at [facility] patient accepted pending insurance auth. Bed assignment will be given upon bed assignment. Placed transportation packet in nurses station. Addendum: 12/25/16 at 1641 by Ingrid Wright DP Spoke with Dee [facility] who accepted patient and currently trying to obtain insurance auth. [facility] number was given and Dee Dee left message for CM to return her call. Dee Dee requested [facility] to assist and have CM at [place] call her so that she can obtain insurance auth for bed assignment due to confusion with who is at risk between [facility] and [facility]. Addendum: 12/25/16 at 1649 by Ingrid Wright DP Spoke with Luis Miguel at [facility] and [facility] facility full and has no beds available.
[2016-12-25 12:00] VITALS: BP 139/87; PULSE 94; RESP 18; TEMP 98.1; O2SAT 94
--- NOTE | 2016-12-25 12:29 | NUR ---
JEFRY SCALE EVALUATION: Patient evaluated for a low Jefry score of 13. Patient was awake, alert, oriented and received in a Rock bed with a mattress. Patient is unable to turn independently. Skin is fair. Recommend reposition patient side to side only every 2 hours with pillow support and off-load pressure areas with pillows for pressure re-distribution. Elevate, off-load and float bilateral heels with pillows. Use moisture barrier cream on buttocks and other moisture susceptible areas QID and as needed for soiling. Perform skin care and monitor skin integrity Q shift. Place patient on a low air-loss mattress. Addendum: 12/25/16 at 1230 by Harshil Camargo RN Error. Wrong note entered. Please see new note.
--- NOTE | 2016-12-25 12:30 | NUR ---
JEFRY SCALE EVALUATION: Patient evaluated for a low Jefry score of 13. Patient was awake, alert, oriented x 1, and received in a [place] bed with an IsoFlex ANURADHA mattress. Patient is unable to turn in bed independently. Skin is fair. Recommend reposition patient side to side only every 2 hours with pillow support and off-load pressure areas with pillows for pressure re-distribution. Elevate, off-load and float bilateral heels with pillows. Use moisture barrier cream on buttocks and other moisture susceptible areas QID and as needed for soiling. Perform skin care and monitor skin integrity Q shift. Initiate low air-loss therapy.
--- NOTE | 2016-12-25 13:37 | NUR ---
Discharge Planning FIRE MARSHAL provided assistance with discharge planning. Phoned 1. [facility] SNF- Mikaela stated no male beds 2. [facility] SNF- Hollis stated no male beds 3. [facility] fax to [phone] Eilzabeth stated they have no isolation beds 4. [facility]- left voicemail message 5. [facility]-Tracey stated case in review. They will call if they are able to accept patient. 6. [facility]- left voicemail message 7. [facility]- left a voicemail message 8. [facility]-after multiple tries, the fax has just now gone through. DC Launch Engineer Jennifer will continue to follow up.
--- NOTE | 2016-12-25 14:16 | NUR ---
DC PLANNING Spoke w son Bossman @ bedside, updated on SNF's that denied & list of SNF's that we are faxing pt info & looking for bed. States agreeable w plan for contracted SNF @ this time [facility] first choice if accepted. Updated Ingrid pineda facilities planner & Sarika ECKERTW.
[2016-12-25] MEDS: D5NS 1,000 ML IV SCH (14:25)
--- NOTE | 2016-12-25 16:10 | NUR ---
PATIENT IS TURNED AND REPOSITIONED FOR COMFORT. NO SIGNS OF DISTRESS NOTED. WILL CONTINUE TO MONITOR.
[2016-12-25 17:01] VITALS: BP 135/82; PULSE 91; RESP 18; TEMP 98; O2SAT 94
--- NOTE | 2016-12-25 18:20 | NUR ---
PATIENT IS FED WITH DINNER, BUT PATIENT'S APPETITE IS POOR DESPITE ENCOURAGEMENT FROM RN AND SIGN MAKER.
--- NOTE | 2016-12-25 19:25 | NUR ---
INITIAL NOTE Patient resting on the bed. No acute distress. Respiration even and unlabored. Skin warm and dry to touch. IV intact to LFA, no redness, no swelling, no swelling. On D5 NS at 100ml/hr, infusing well. F/C intact, drain gravity with yellow urine. On contact isolation for MRSA of nares. ANURADHA mattress in placed. Safety measure maintained. Call light within reached. Padded side rails up, bed in low position, bed alarm on. Will continue to monitor.
[2016-12-25 19:30] VITALS: BP 127/82; PULSE 133; RESP 19; TEMP 99.2; O2SAT 95
--- NOTE | 2016-12-25 21:25 | NUR ---
ROUND Patient resting on the bd comfortable. Respiration even and unlabored. No acute distress. Call light within reached. Padded side rails up, bed alarm on, bed in low position. Will continue to monitor.
[2016-12-25] MEDS: METOPROLOL TARTRATE 50 MG TABLET PO SCH (21:33)
--- NOTE | 2016-12-25 23:15 | NUR ---
ROUND Patient resting on the bd comfortable. Respiration even and unlabored. No acute distress. Safety measure maintained. Call light within reached. Padded side rails up, bed alarm on, bed in low position. Will continue to monitor.
[2016-12-26 00:21] VITALS: BP 102/74; PULSE 92; RESP 19; TEMP 98.6; O2SAT 96
[2016-12-26] MEDS: D5NS 1,000 ML IV SCH ×2 (01:26→14:41)
--- NOTE | 2016-12-26 01:34 | NUR ---
ROUND Patient resting on the bd comfortable. Respiration even and unlabored. No acute distress. Safety measure maintained. Call light within reached. Padded side rails up, bed alarm on, bed in low position. Continue to monitor.
--- NOTE | 2016-12-26 03:57 | NUR ---
ROUND CLEANER AND PREPARER cleaning patient. Turned and repositioned. No acute distress. Safety measure maintained. Call light within reached. Continue to monitor.
[2016-12-26 04:49] VITALS: BP 120/72; PULSE 85; RESP 17; TEMP 97.8; O2SAT 96
--- NOTE | 2016-12-26 05:11 | NUR ---
ROUND Patient resting on the bed with eyes closed. No acute distress. Respiration even and unlabored. Call light within reached. Safety measure maintained. Bed in low position, padded side rails up, bed alarm on. Continue to monitor.
[2016-12-26] MEDS: CYCLOBENZAPRINE HCL 10 MG TABLET (FLEXERIL) PO SCH ×3 (05:23→22:10)
[2016-12-26 06:28] LABS: BASOPHILS % (AUTO) 0.5 % (0.0-2.0); EOSINOPHILS # (AUTO) 0.1 K/uL (0.0-0.4); EOSINOPHILS % (AUTO) 1.1 % (0.0-4.0); HEMATOCRIT 37.4 % (36-54); HEMOGLOBIN 12.7 g/dL (14.0-18.0); LYMPHOCYTES # (AUTO) 1.2 K/uL (1.0-5.5); LYMPHOCYTES % (AUTO) 16.8 % (20.5-51.5); MEAN CORPUSCULAR HEMOGLOBIN 29 pg (27-31); MEAN CORPUSCULAR HGB CONC 34 % (32-36); MEAN CORPUSCULAR VOLUME 86 fL (79.0-98.0); MONOCYTES # (AUTO) 0.6 K/uL (0.0-1.0); MONOCYTES % (AUTO) 7.8 % (1.7-9.3); NEUTROPHILS # (AUTO) 5.3 K/uL (1.8-7.7); NEUTROPHILS % (AUTO) 73.8 % (40.0-70.0); PLATELET COUNT (AUTO) 205 K/uL (130-430); RED BLOOD CELL COUNT(AUTO) 4.33 MIL/uL (4.2-6.2); RED CELL DISTRIBUTION WIDTH 13.6 % (9.0-15.0); WHITE BLOOD COUNT (AUTO) 7.2 K/uL (4.8-10.8)
[2016-12-26 06:42] LABS: CALCIUM 9.3 mg/dL (8.4-11.0); POTASSIUM 3.1 mmol/L (3.5-5.1)
[2016-12-26 06:43] LABS: CREATININE 0.85 mg/dL (0.55-1.30)
--- NOTE | 2016-12-26 06:45 | NUR ---
CLOSING NOTE Patient resting on the bed. No acute distress. Respiration even and unlabored. Skin warm and dry to touch. IV intact to LFA, no redness, no swelling, no swelling. IVF infusing well. F/C intact, drain gravity with yellow urine. Continue on contact isolation for MRSA of nares. ANURADHA mattress in placed. All needs met. Hourly rounding during shift. Safety measure maintained. Call light within reached. Padded side rails up, bed in low position, bed alarm on. Will endorse to morning shift nurse.
[2016-12-26 08:17] VITALS: BP 136/82; PULSE 86; RESP 18; TEMP 97.3; O2SAT 98
--- NOTE | 2016-12-26 08:23 | NUR ---
Assessment and vital signs. Patient opens eyes. No meaningful eye contact or verbal communication. Vital signs stable.
[2016-12-26] MEDS: amLODIPine BESYLATE 10 MG TABLET PO SCH (09:00)
[2016-12-26] MEDS: METOPROLOL TARTRATE 50 MG TABLET PO SCH ×2 (09:00→20:27)
[2016-12-26] MEDS: MEMANTINE HCL 5 MG TABLET PO SCH (09:00)
--- NOTE | 2016-12-26 09:23 | NUR ---
Rounds to patient. Med pass complete.
[2016-12-26] MEDS: POTASSIUM CHLORIDE 20 MEQ/PKT PACKET PO SCH ×2 (09:32→20:26)
[2016-12-26] MEDS: TAMSULOSIN HCL 0.4 MG CAP PO SCH (09:32)
[2016-12-26] MEDS: HEPARIN SODIUM,PORCINE 5000 UNITS/ML VIAL SUBCUT SCH ×2 (09:34→20:29)
--- NOTE | 2016-12-26 09:57 | NUR ---
DISCHARGE PLANNING Called [facility] [phone] spoke with Cordelia who stated member is [facility] transferred call to [phone] spoke with Kathy Senior at [facility] who confirmed [facility] at risk for SNF placement. Kathy transferred call back to [facility] spoke with Rosetta who transferred call to Maris who transferred call to Holley who stated assigned LEXIE Copeland and advised accepting facility to call [phone] Ext [phone] to give info needed so auth can be populated. [facility] made Dee Dee at [facility] aware and will follow up. Addendum: 12/26/16 at 1224 by Ingrid HSU Called patient anabel Keita [phone] voice mailbox full and unable to leave message at this time. Addendum: 12/26/16 at 1315 by Melanie Walden RN >> LM and faxed Authorization to [facility] snf request to LEXIE Copeland at [facility] , fax# [phone] Ext [phone]. The pt. needs iv Vancomycin x 10 days, pt. lives alone, WC bound. >> The pt's dtr Elenita made aware of order to SNF and is waiting for Ins. approval. Had the ins. not approved, Elenita will take the [facility]. home [facility]. She said " an arrangement made to have someone be with pt. 06/04." Addendum: 12/26/16 at 1357 by Melanie Walden RN >> Spoke with [facility] with update clinical info and refaxed the request to [phone]. [facility] will call back with the auth info. Addendum: 12/26/16 at 1515 by Ingrid HSU Received call from Mayuri at [facility] auth#[id number] contracted ambulance auth#[id number]. Called [facility] spoke with Dee Dee who will return call with bed assignment. Called patient daughter Elenita Lopes [phone] who is agreeable with patient discharge and transfer to [facility] today. Elenita did not need call back with time ambulance will be arranged. Addendum: 12/26/16 at 1701 by Ingrid Wright DP Called [facility] ambulance [phone] spoke with [facility]VALO transport on will call pending bed assignment. Transportation packet in nurse station. RN made aware.
--- NOTE | 2016-12-26 10:05 | NUR ---
Rounds to pt. Reposition. Heels floating. Patient awakens now and is attempting to make meaningful conversation during interaction with mortgage or loan underwriter.
[2016-12-26] MEDS ORDERED: POTASSIUM CHLORIDE 40 MEQ, LIDOCAINE JECT 2% PF 100 MG 50 MG in NS 250 ML IV ONE (11:00)
--- NOTE | 2016-12-26 11:05 | NUR ---
Vancomycin IV at this time. Patient needs met.
[2016-12-26 13:20] VITALS: BP 142/71; PULSE 86; RESP 13; TEMP 97.2; O2SAT 98
[2016-12-26] MEDS: VANCOMYCIN HCL 1,250 MG in NS 250 ML IV SCH ×2 (14:24→20:28)
[2016-12-26] MEDS: LIDOCAINE PATCH 5% 1 EA TP SCH (14:28)
--- NOTE | 2016-12-26 14:28 | NUR ---
KCL IVPB up and patient needs met. New IV fluid bag now. Repositioned with student nurses and assist to take pills po with thickened liquids. Patient has difficulty following commands to drink thickened liquids.
[2016-12-26] MEDS: MUPIROCIN 2% TOPICAL OINTMENT 22 GM TP SCH ×2 (14:44→20:27)
--- NOTE | 2016-12-26 15:40 | NUR ---
S.T. S: PT SEEN FOR SWALLOW TX, AWAKE AND RESPONSIVE. O: IMPROVE SWALLOW FUNCTION AND SAFETY. A: PT WAS AGREEABLE W/ P.O. TRIALS W/ S.T. HOWEVER, HE WAS ONLY WILLING TO TAKE VERY SMALL AMOUNT OF PUREE AND THIN LIQUIDS. NORMAL TRANSIT FOR PUREE AND DELAYED BOLUS TRANSFER FOR THIN LIQUIDS. PER NRSG NOTES, PT'S P.O. INTAKE HAS BEEN LOW. P: PENDING TRANSFER TO [facility] TODAY.
[2016-12-26 16:08] VITALS: BP 139/76; PULSE 113; RESP 18; TEMP 98.6; O2SAT 93
--- NOTE | 2016-12-26 17:36 | NUR ---
CALLED [facility] TO TRANSPORT PT TO [facility] TIME IS 0130 12/27/16. SPOKE TO DANETTE
--- NOTE | 2016-12-26 17:55 | NUR ---
Discussed with accepting facility, [facility], [facility], [facility]. Prefers nurse report on NOC shift as patient will be a 1:30am pickup tomorrow.
--- NOTE | 2016-12-26 18:25 | NUR ---
Students assisted with bathing and dressing patient for transfer.
[2016-12-26 19:15] VITALS: BP 149/93; PULSE 120; RESP 18; TEMP 97.8; O2SAT 96
--- NOTE | 2016-12-26 19:15 | NUR ---
INITIAL NOTES RECVD PT IN BED A/A BUT CONFUSED, NON VERBAL. NO S/S OF PAIN OR ANY DISTRESS NOTED. IV NOTED TO L WRIST G22, NO INFILTRATE WITH GOOD BLOOD RETURN. BUE, BLE ARE WEAK; ON BEDREST. BED IN LOW POSITION WITH CALL LIGHT WITHIN REACH; WILL CONT TO MONITOR.
--- NOTE | 2016-12-26 21:15 | NUR ---
ROUNDS PT IS AWAKE IN BED. NO S/S OF PAIN AND NO DISTRESS NOTED. BED IN LOW POSITION WITH CALL LIGHT WITHIN REACH, WILL CONT TO MONITOR.
--- NOTE | 2016-12-26 23:15 | NUR ---
PARTIAL BED BATH PARTIAL BED BATH RENDERED WITH FAYE FERNANDES. NO S/S OF PANY DISTRESS NOTED. CALL LIGHT WITHIN REACH, WILL CONT TO MONITOR.
[2016-12-27 00:30] VITALS: BP 140/76; PULSE 89; RESP 18; TEMP 98.8; O2SAT 99
--- NOTE | 2016-12-27 00:32 | NUR ---
REPORT GIVEN TO [facility] SPOKE AND GAVE REPORT TO ANTONIO SUTHERLAND. HER QUESTIONS AND INQUIRIES ABOUT PT CONDITION WAS ANSWERED AND EXPLAINED.
[2016-12-27 00:43] VITALS: BP 149/93; PULSE 88; RESP 18; TEMP 98.4; O2SAT 96
--- NOTE | 2016-12-27 01:38 | NUR ---
ROBERT CARE ROBERT CARE RENDERED TO PT. NO S/S OF PAIN AND NO SOB NOTED. BED IN LOW POSITION WITH CALL LIGHT WITHIN REACH; WILL CONT TO MONITOR. AWAITING TO BE GASTROENTEROLOGIST AT THIS TIME.
--- NOTE | 2016-12-27 02:00 | NUR ---
PT TESTING AND REGULATING CHIEF PT WAS P/U BY TWO TRANSPORT PERSONNEL. PT A/A, NO S/S OF PAIN AND NO SOB NOTED DURING D/C. V/S ARE WNL. F/C INTACT AND IV LEFT IN PLACE FOR CONTINUATION OF ABT. TRANSITION PAPERS AND BELONGINGS WAS WITH PT.
--- NOTE | 2016-12-27 13:58 | NUR ---
S.T. DISCHARGE SUMMARY: PT WAS SEEN FOR 2 SWALLOW EVALS AND 1 SWALLOW TX. PLEASE REFER TO YESTERDAY'S NOTES FOR D/C STATUS. PT TRANSFERRED TO [facility]CF. REC: CONTINUE DYSPHAGIA TX. G8997 CI NOMS LEVEL 6 G8998 CK NOMS LEVEL 4
== END 2016-12-27 02:00 | DRG 720 ==
LOC: SED 06:40 → STU 09:17 → SMU 12-24 15:43
PROVIDERS: ADMIT General Practice; ATTEND General Practice
DX: A41.9 Sepsis, unspecified organism (principal); G93.41 Metabolic encephalopathy; E44.0 Moderate protein-calorie malnutrition; N39.0 Urinary tract infection, site not specified; N40.0 Benign prostatic hyperplasia without lower urinary tract symptoms; I10 Essential (primary) hypertension; G81.91 Hemiplegia, unspecified affecting right dominant side; R47.01 Aphasia; F03.90 Unspecified dementia, unspecified severity, without behavioral disturbance, psychotic disturbance, mood disturbance, and anxiety; M62.838 Other muscle spasm; B95.2 Enterococcus as the cause of diseases classified elsewhere; B95.7 Other staphylococcus as the cause of diseases classified elsewhere; B96.89 Other specified bacterial agents as the cause of diseases classified elsewhere; G89.4 Chronic pain syndrome; Z88.8 Allergy status to other drugs, medicaments and biological substances; Z79.899 Other long term (current) drug therapy; Z86.718 Personal history of other venous thrombosis and embolism; Z68.21 Body mass index [BMI] 21.0-21.9, adult; Z86.73 Personal history of transient ischemic attack (TIA), and cerebral infarction without residual deficits
CPT/HCPCS: 36415; 70450-TC; 71010; 74000-TC; 80048; 80053; 80202-TC; 81000-TC; 82962; 83605; 83735-TC; 84484; 85025; 85610-TC; 85730-TC; 87040-TC; 87081; 87086; 87186-TC; 92526-GN; 92610-GN; 93005; 96365; 99285; J1644; J1956; J3370; J3480; J7042; J7050

== ENCOUNTER 2017-01-04 23:05 | Inpatient (IN) | payer OTHER ==
[~2017-01-04] VITALS: Ht 180.3 cm; Wt 64.9 kg
[~2017-01-04 23:05] MED LIST changes: -AMLO2.5T2 PO; +CYCL-10 PO; +HEPA500014 SUBCUT; +LIDP TP; +METO25TA6 PO; +NOR10 PO
--- NOTE | 2017-01-04 23:08 | NUR ---
Placed in room 07 . Placed on front desk monitor, blood pressure machine and pulse oximeter. To gown for exam. Side rails up. Report given to MyENA.
[2017-01-04] MEDS ORDERED: NACL 0.9% 1,000 ML IV ONE ×2 (23:15→23:45)
[2017-01-04 23:17] VITALS: BP_SYST 155
--- NOTE | 2017-01-04 23:25 | NUR ---
MD Lyle at bedside examining pt
[2017-01-04 23:35] LABS: BASOPHILS # (AUTO) 0.1 K/uL (0.0-0.2); BASOPHILS % (AUTO) 0.3 % (0.0-2.0); EOSINOPHILS % (AUTO) 0.2 % (0.0-4.0); HEMATOCRIT 46.3 % (36-54); HEMOGLOBIN 14.9 g/dL (14.0-18.0); LYMPHOCYTES # (AUTO) 1.6 K/uL (1.0-5.5); LYMPHOCYTES % (AUTO) 9.2 % (20.5-51.5); MEAN CORPUSCULAR HEMOGLOBIN 28 pg (27-31); MEAN CORPUSCULAR HGB CONC 32 % (32-36); MEAN CORPUSCULAR VOLUME 86 fL (79.0-98.0); MONOCYTES # (AUTO) 0.6 K/uL (0.0-1.0); MONOCYTES % (AUTO) 3.5 % (1.7-9.3); NEUTROPHILS # (AUTO) 15.2 K/uL (1.8-7.7); PLATELET COUNT (AUTO) 266 K/uL (130-430); RED BLOOD CELL COUNT(AUTO) 5.36 MIL/uL (4.2-6.2); RED CELL DISTRIBUTION WIDTH 14.1 % (9.0-15.0); WHITE BLOOD COUNT (AUTO) 17.5 K/uL (4.8-10.8)
[2017-01-04 23:43] LABS: CALCIUM 9.8 mg/dL (8.4-11.0); CREATININE 1.28 mg/dL (0.55-1.30)
[2017-01-04] MEDS ORDERED: VANCOMYCIN HCL 1,000 MG in NS 250 ML IV ONE (23:45)
[2017-01-04] MEDS ORDERED: PIPERACILLIN/TAZO 3.375 GM in NS 50 ML IV ONE (23:45)
--- NOTE | 2017-01-04 23:47 | NUR ---
Pt brought in by ACLS from [facility] , c/o SOB, ALOC. Pt will have GT placement here tomorrow. EMT reports that pt had sepsis a few weeks ago. Pt confused, unable to verbalize needs. Pt on O2 L NC. O2 sat 93%. aware. Safety maintained. Continue to monitor pt.
--- NOTE | 2017-01-04 23:47 | NUR ---
Note kehinde in EDM - 01/05/17 at 0049 by SDNURMTN Pt brought in by ACLS from [facility] , c/o SOB, ALOC, GT placement. EMT reports that pt had sepsis a few weeks ago. Pt confused, unable to verbalize needs. Pt on o2 L NC. O2 sat 932
[2017-01-04 23:49] LABS: INR 1.3 (0.80-1.20); PROTHROMBIN TIME 13.7 SECS (9.5-12.5)
[2017-01-04 23:49] LABS: ALBUMIN 2.9 g/dL (3.4-4.8); TOTAL BILIRUBIN 0.9 mg/dL (0.0-1.0); TOTAL PROTEIN, SERUM 7.4 g/dL (6.4-8.3)
[2017-01-04] MEDS ORDERED: VANCOMYCIN HCL 1000 MG/VIAL IV ONE (23:50)
[2017-01-04] MEDS ORDERED: PIPERACILLIN/TAZOBACTAM 3.375 GM/VIAL (ZOSYN) IV ONE (23:51)
[2017-01-04 23:52] LABS: POTASSIUM 2.8 mmol/L (3.5-5.1)
[2017-01-04 23:58] LABS: NEUTROPHILS % (AUTO) 86.8 % (40.0-70.0)
[2017-01-05] VITALS (8 sets, daily range): BP systolic 123–155
[2017-01-05] MEDS ORDERED: IPRATROPIUM/ALBUTEROL SULFATE 3 ML AMPUL.NEB INH ONE
[2017-01-05] MEDS ORDERED: KCL 20 mEq in 100 mL (PREMIX) 100 ML IV ONE (00:15)
[2017-01-05] MEDS ORDERED: POTASSIUM CHLORIDE 20 MEQ TAB.PRT.SR PO ONE (00:15)
[2017-01-05] MEDS ORDERED: CAT.1 PO (01:06)
[2017-01-05] MEDS ORDERED: LEVE1000 PO (01:09)
[2017-01-05] MEDS ORDERED: METO-442 PO (01:11)
--- NOTE | 2017-01-05 01:50 | NUR ---
Called Tele for bed placement, Tele to call back with room number.
--- NOTE | 2017-01-05 02:00 | NUR ---
Not enough nurses available to cover for patient transfer to floor. Patient will be transferred when nurse returns from admitting patient.
--- NOTE | 2017-01-05 02:20 | NUR ---
Patient will be admitted to care of ENA Reilly. Admitted to Tele unit. Will go to room 133A. Belongings list completed. Summary report printed. Report will be given at bedside.
--- NOTE | 2017-01-05 02:26 | NUR ---
ADMISSION NOTE Received patient from ER via gerardo, received report from My RN. Patient admitted with diagnosis of acute respiratory failure. Patient oriented to hospital routine, call light, toileting and safety-patient verbalized understanding. Addendum: 01/05/17 at 0239 by Samantha Negrete RN Pt nonverbal, bed in lowest position.
--- NOTE | 2017-01-05 02:45 | NUR ---
Initial Notes Received patient laying in bed. Patient nonverbal, does not follow commands. Patient appears in no acute distress or pain. Breathing seems unlabored on bipap 12/6/100% fiO2. IV site patent/clean/dry. Wound noted sacral region, photo taken and charted, cleansed with NS, Z-guard applied, optifoam dressing applied. Call light in hand, fall precautions in place. Will continue to monitor.
--- NOTE | 2017-01-05 02:46 | NUR ---
Consult called Reason for consultation: Acute Respiratory Failure Was consult called: yes Person who was notified: Nora Consulting Physician: Adrian Cagle Product Consultant Specialty: Pulmonary Product Consultant
[2017-01-05] MEDS: D5NS 1,000 ML IV SCH ×2 (03:11→17:22)
--- NOTE | 2017-01-05 04:19 | NUR ---
Rounds Patient resting in bed, no change in mentation. Patient appears in no acute distress or pain. Patient tolerating bipap. IV site patent/clean/dry. Repositioned patient. Fall precautions in place, will continue to monitor.
--- NOTE | 2017-01-05 06:35 | NUR ---
Closing Notes Patient resting in bed with eyes closed, easily aroused to name, no change in mentation. Patient does not appear to be in any acute distress or pain. Tolerating bipap. IV site patent/clean/dry, no S/S infection/infiltration noted. Patient remains NPO. Needs addressed throughout shift. Call light in hand, fall precautions in place. Will continue to monitor for changes and safety, and endorse all patient care/needs to oncoming nurse.
--- NOTE | 2017-01-05 07:22 | NUR ---
am notes: report given at bedside by [facility] night nurse. Patient on the bed awake,non verbal and on bipap ,back up rate of 16. 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 with guan in situ. ivf on going at right forearm intact. no distress. continue to monitor.
[2017-01-05] MEDS: IPRATROPIUM/ALBUTEROL SULFATE 3 ML AMPUL.NEB INH SCH ×3 (08:10→19:51)
--- NOTE | 2017-01-05 09:10 | NUR ---
Nutrition Update Jefry Scale 13 noted. Pt admitted for acute respiratory failure. Diet: NPO BMI: 20 kg/m2 RD to follow per nutrition care standards.
[2017-01-05] MEDS ORDERED: ACETAMINOPHEN 325 MG TABLET PO PRN (09:15)
[2017-01-05] MEDS ORDERED: DOCUSATE SODIUM 100 MG CAPSULE PO PRN (09:15)
[2017-01-05] MEDS ORDERED: MAGNESIUM SULFATE 50 ML IV PRN (09:15)
[2017-01-05] MEDS ORDERED: cloNIDine HCL 0.1 MG TABLET PO PRN (09:15)
[2017-01-05] MEDS ORDERED: ONDANSETRON HCL 4 MG/2 ML VIAL IVP PRN (09:15)
[2017-01-05] MEDS ORDERED: LORazepam 2 MG/ML VIAL IVP PRN (09:15)
[2017-01-05] MEDS ORDERED: MORPHINE 2 MG/ML INJ. SYRINGE IVP PRN (09:15)
--- NOTE | 2017-01-05 09:15 | NUR ---
rounds; stable. no problem.on o2 2l/nc,good saturation.
--- NOTE | 2017-01-05 09:29 | NUR ---
CONSULT CALLED [facility] WAS CALLED FOR ORDER FOR SWALLOW EVALUATION.
[2017-01-05] MEDS ORDERED: TAMSULOSIN HCL 0.4 MG CAP PO ONE (09:30)
[2017-01-05] MEDS ORDERED: METOPROLOL TARTRATE 50 MG TABLET PO ONE (09:30)
[2017-01-05] MEDS ORDERED: amLODIPine BESYLATE 10 MG TABLET PO ONE (09:30)
[2017-01-05] MEDS ORDERED: MEMANTINE HCL 5 MG TABLET PO ONE (09:30)
[2017-01-05] MEDS ORDERED: HEPARIN SODIUM,PORCINE 5000 UNITS/ML VIAL SUBCUT ONE (09:30)
[2017-01-05] MEDS ORDERED: levETIRAcetam 500 MG TABLET PO ONE (09:30)
[2017-01-05 09:43] LABS: ABG TOTAL HEMOGLOBIN 13.8 G/dL (12.0-18.0); BLOOD GAS BASE EXCESS -2.3 mmol/L (-3.0-3.0); BLOOD GAS COHb% 0.1 % (0.5-1.5); BLOOD GAS HHB 6.3 % (0.0-6.0); BLOOD GAS PH 7.488 (7.350-7.450); BLOOD O2Hb% 93.5 % (94.0-97.0)
--- NOTE | 2017-01-05 10:00 | NUR ---
o2: rt showed abg results to hazel spear to changed to o2 nasal cannula.
--- NOTE | 2017-01-05 10:24 | NUR ---
meds: placed on upright position,crushed po meds ,mixed with apple sauce,tolerated by patient.
[2017-01-05 10:33] LABS: BILIRUBIN,URINE 2+ (NEGATIVE); BLOOD, URINE 3+ (NEGATIVE); CLARITY/URINE CLEAR (CLEAR); COLOR,URINE YELLOW (YELLOW); GLUCOSE,URINE NEGATIVE (NEGATIVE); KETONES,URINE 1+ (NEGATIVE); LEUKOCYTE ESTERASE ,URINE NEGATIVE (NEGATIVE); NITRITE, URINE NEGATIVE (NEGATIVE); PROTEIN URINE 2+ (NEGATIVE)
[2017-01-05 10:45] LABS: BACTERIA,URINE FEW /HPF (None Seen); WBC,URINE 0-3 /HPF (0-3)
--- NOTE | 2017-01-05 12:00 | NUR ---
rounds: stable. pt tolerated o2 2l/nc,good saturation.
[2017-01-05 14:23] LABS: CALCIUM 9.4 mg/dL (8.4-11.0); CREATININE 1.16 mg/dL (0.55-1.30); POTASSIUM 3.1 mmol/L (3.5-5.1)
--- NOTE | 2017-01-05 14:29 | NUR ---
S.T. SWALLOW EVAL COMPLETED. PT PRESENTS W/ MOD OROPHARYNGEAL DYSPHAGIA W/ INCREASED ORAL TRANSIT TIME AND COUGHING ON THIN LIQUIDS INDICATING RISK FOR ASPIRATION. REC: PUREE DIET. NRSG NOTIFIED. G8996 CK G8997 CK G8998 CK NOMS LEVEL 4
--- NOTE | 2017-01-05 14:40 | NUR ---
rounds: swallowing eval done by romina,with recommendations pt can have puree diet,thickened liquids with nectar,feed pt when awake only and on upright position.feed pt slowly with small bits/bites.
--- NOTE | 2017-01-05 16:51 | NUR ---
rounds: awake and more alert this time. family at bedside. no distress.
[2017-01-05] MEDS: POTASSIUM CHLORIDE 10 MEQ TAB.PRT.SR PO PRN (17:23)
--- NOTE | 2017-01-05 18:34 | NUR ---
CLOSING NOTES: PATIENT FED BY GUSSET EDGER AND ATE 50% OF HIS MEAL. FAMILY AT BEDSIDE. NO DISTRESS. O2 2L/NC,GOOD SATURATION.
--- NOTE | 2017-01-05 19:33 | NUR ---
PM ASSESSMENT PT. A/OX1, OPENS EYES SPONTANEOUSLY, ABLE TO NOD HEAD AT TIMES. NO DISTRESS NOTED, NO S/S OF PAIN OR DISCOMFORT, NOTED WITH JAIME CATH DRAINING WELL TO GRAVITY, FAMILY AT BEDSIDE UPDATED WITH PLAN OF CARE, FALL/SAFETY PRECAUTIONS MAINTAINED, CALL LIGHT WITHIN REACH, WILL CONTINUE TO MONITOR.
[2017-01-05] MEDS: levETIRAcetam 500 MG TABLET PO SCH (20:33)
[2017-01-05] MEDS: METOPROLOL TARTRATE 50 MG TABLET PO SCH (20:33)
[2017-01-05] MEDS: VANCOMYCIN HCL 1,500 MG in NS 250 ML IV SCH (20:33)
[2017-01-05] MEDS: HEPARIN SODIUM,PORCINE 5000 UNITS/ML VIAL SUBCUT SCH (20:35)
[2017-01-05] MEDS ORDERED: ZOLPIDEM TARTRATE 5 MG TABLET PO PRN (21:00)
--- NOTE | 2017-01-05 21:30 | NUR ---
RN ROUNDS PT. RESTING QUIETLY, VITAL SIGNS STABLE, NO DISTRESS NOTED, NO SEIZURE ACTIVITY NOTED, NO S/S OF PAIN OR DISCOMFORT. REPOSITIONED WITH PILLOW SUPPORT, WILL CONTINUE TO MONITOR.
[2017-01-06] VITALS: BP_SYST 120
[2017-01-06] MEDS: IPRATROPIUM/ALBUTEROL SULFATE 3 ML AMPUL.NEB INH SCH ×4 (00:40→19:35)
[2017-01-06 04:00] VITALS: BP_SYST 146
[2017-01-06] MEDS: D5NS 1,000 ML IV SCH (05:51)
--- NOTE | 2017-01-06 06:28 | NUR ---
CLOSING NOTES PT. RESTING QUIETLY, VITAL SIGNS STABLE, NO DISTRESS NOTED, NO SEIZURE ACTIVITY NOTED THROUGHOUT THE NIGHT, NO S/S OF PAIN OR DISCOMFORT. REPOSITIONED WITH PILLOW SUPPORT. JAIME CATHETER IN PLACE.
[2017-01-06 07:43] LABS: BASOPHILS % (AUTO) 0.5 % (0.0-2.0); EOSINOPHILS # (AUTO) 0.1 K/uL (0.0-0.4); EOSINOPHILS % (AUTO) 2.6 % (0.0-4.0); HEMATOCRIT 38.5 % (36-54); HEMOGLOBIN 12.9 g/dL (14.0-18.0); LYMPHOCYTES # (AUTO) 1.3 K/uL (1.0-5.5); LYMPHOCYTES % (AUTO) 28.6 % (20.5-51.5); MEAN CORPUSCULAR HEMOGLOBIN 30 pg (27-31); MEAN CORPUSCULAR HGB CONC 34 % (32-36); MEAN CORPUSCULAR VOLUME 89 fL (79.0-98.0); MONOCYTES # (AUTO) 0.6 K/uL (0.0-1.0); MONOCYTES % (AUTO) 12.1 % (1.7-9.3); NEUTROPHILS # (AUTO) 2.7 K/uL (1.8-7.7); NEUTROPHILS % (AUTO) 56.2 % (40.0-70.0); PLATELET COUNT (AUTO) 168 K/uL (130-430); RED BLOOD CELL COUNT(AUTO) 4.34 MIL/uL (4.2-6.2); RED CELL DISTRIBUTION WIDTH 14.4 % (9.0-15.0)
[2017-01-06 07:50] LABS: CALCIUM 9.1 mg/dL (8.4-11.0); CREATININE 0.99 mg/dL (0.55-1.30)
[2017-01-06 07:55] LABS: WHITE BLOOD COUNT (AUTO) 4.7 K/uL (4.8-10.8)
[2017-01-06 08:00] VITALS: BP_SYST 151
[2017-01-06] MEDS: MEMANTINE HCL 5 MG TABLET PO SCH (08:07)
[2017-01-06] MEDS: levETIRAcetam 500 MG TABLET PO SCH ×2 (08:07→20:31)
[2017-01-06] MEDS: POTASSIUM CHLORIDE 10 MEQ TAB.PRT.SR PO PRN (08:07)
[2017-01-06] MEDS: amLODIPine BESYLATE 10 MG TABLET PO SCH (08:08)
[2017-01-06] MEDS: TAMSULOSIN HCL 0.4 MG CAP PO SCH (08:08)
[2017-01-06] MEDS: HEPARIN SODIUM,PORCINE 5000 UNITS/ML VIAL SUBCUT SCH ×2 (08:15→20:35)
[2017-01-06] MEDS: METOPROLOL TARTRATE 50 MG TABLET PO SCH ×2 (08:24→20:31)
[2017-01-06] MEDS ORDERED: POTASSIUM CHLORIDE 40 MEQ, LIDOCAINE JECT 2% PF 100 MG 50 MG in NS 250 ML IV ONE (10:30)
[2017-01-06 12:33] VITALS: BP_SYST 137
[2017-01-06] MEDS: 0.45% NACL 1,000 ML IV SCH (12:47)
[2017-01-06 16:16] VITALS: BP_SYST 140
[2017-01-06] MEDS: PIPERACILLIN/TAZO 3.375/DEX-IS 50 ML IV SCH ×2 (18:44→23:26)
--- NOTE | 2017-01-06 19:13 | NUR ---
PM ASSESSMENT PT. A/OX1, OPENS EYES SPONTANEOUSLY, ABLE TO NOD HEAD AT TIMES. NO DISTRESS NOTED, NO S/S OF PAIN OR DISCOMFORT, SEIZURE PADS IN PLACE, NOTED WITH JAIME CATH DRAINING WELL TO GRAVITY, FALL/SAFETY PRECAUTIONS MAINTAINED, WILL CONTINUE TO MONITOR.
[2017-01-06 20:00] VITALS: BP_SYST 139
[2017-01-06] MEDS: VANCOMYCIN HCL 1,500 MG in NS 250 ML IV SCH (20:30)
[2017-01-06] MEDS: LACTOBACILLUS RHAMNOSUS GG 1 CAP CAPSULE PO SCH (20:31)
[2017-01-07] MEDS: IPRATROPIUM/ALBUTEROL SULFATE 3 ML AMPUL.NEB INH SCH ×3 (00:40→13:44)
[2017-01-07] MEDS: 0.45% NACL 1,000 ML IV SCH (02:03)
[2017-01-07 02:20] VITALS: BP_SYST 132
[2017-01-07 04:00] VITALS: BP_SYST 142
[2017-01-07] MEDS: PIPERACILLIN/TAZO 3.375/DEX-IS 50 ML IV SCH ×4 (05:20→23:31)
[2017-01-07 07:33] LABS: BASOPHILS # (AUTO) 0.1 K/uL (0.0-0.2); BASOPHILS % (AUTO) 1.2 % (0.0-2.0); EOSINOPHILS # (AUTO) 0.1 K/uL (0.0-0.4); EOSINOPHILS % (AUTO) 2.8 % (0.0-4.0); HEMATOCRIT 34.9 % (36-54); HEMOGLOBIN 11.7 g/dL (14.0-18.0); LYMPHOCYTES # (AUTO) 1.1 K/uL (1.0-5.5); LYMPHOCYTES % (AUTO) 23.7 % (20.5-51.5); MEAN CORPUSCULAR HEMOGLOBIN 29 pg (27-31); MEAN CORPUSCULAR HGB CONC 34 % (32-36); MEAN CORPUSCULAR VOLUME 87 fL (79.0-98.0); MONOCYTES # (AUTO) 0.5 K/uL (0.0-1.0); MONOCYTES % (AUTO) 12.3 % (1.7-9.3); NEUTROPHILS # (AUTO) 2.6 K/uL (1.8-7.7); PLATELET COUNT (AUTO) 179 K/uL (130-430); RED BLOOD CELL COUNT(AUTO) 4.02 MIL/uL (4.2-6.2); RED CELL DISTRIBUTION WIDTH 14.1 % (9.0-15.0); WHITE BLOOD COUNT (AUTO) 4.4 K/uL (4.8-10.8)
--- NOTE | 2017-01-07 07:42 | NUR ---
OPENING NOTE PATIENT IS AWAKE, RECEIVING BREATHING TREATMENT. NO SIGNS OF DISTRESS. LUNGS CLEAR TO BASES. NO EDEMA, NO SIGNS OF DISTRESS.
[2017-01-07 08:00] VITALS: BP_SYST 134
[2017-01-07 08:06] LABS: CALCIUM 9.1 mg/dL (8.4-11.0); CREATININE 0.97 mg/dL (0.55-1.30)
[2017-01-07] MEDS: TAMSULOSIN HCL 0.4 MG CAP PO SCH (09:09)
[2017-01-07] MEDS: LACTOBACILLUS RHAMNOSUS GG 1 CAP CAPSULE PO SCH ×2 (09:09→20:42)
[2017-01-07] MEDS: MEMANTINE HCL 5 MG TABLET PO SCH (09:09)
[2017-01-07] MEDS: POTASSIUM CHLORIDE 10 MEQ TAB.PRT.SR PO PRN (09:09)
[2017-01-07] MEDS: levETIRAcetam 500 MG TABLET PO SCH ×2 (09:09→20:46)
[2017-01-07] MEDS: amLODIPine BESYLATE 10 MG TABLET PO SCH (09:10)
[2017-01-07] MEDS: METOPROLOL TARTRATE 50 MG TABLET PO SCH ×2 (09:13→20:42)
[2017-01-07] MEDS: HEPARIN SODIUM,PORCINE 5000 UNITS/ML VIAL SUBCUT SCH ×2 (09:14→20:45)
--- NOTE | 2017-01-07 09:35 | NUR ---
PATIENT MEDICATED ORDERED. BETITO CARVAJAL AND FINN IN TO SEE PATIENT
[2017-01-07 12:00] VITALS: BP_SYST 138
[2017-01-07] MEDS ORDERED: POTASSIUM CHLORIDE 10 MEQ in 0.45% NACL 1,000 ML IV SCH (12:00)
[2017-01-07] MEDS ORDERED: POTASSIUM CHLORIDE 40 MEQ, LIDOCAINE JECT 2% PF 100 MG 50 MG in NS 250 ML IV ONE (12:00)
--- NOTE | 2017-01-07 12:00 | NUR ---
patient medicated as ordered for depleted potassium
[2017-01-07 16:00] VITALS: BP_SYST 136
--- NOTE | 2017-01-07 16:00 | NUR ---
patient sleeping at this time. shown no signs of distress throughout the day.
--- NOTE | 2017-01-07 18:45 | NUR ---
family at bedside requesting to speak with case management regarding patient's dc status and hopefully bringing him home with home health or someone to help with care.
--- NOTE | 2017-01-07 19:25 | NUR ---
INITIAL NOTE Patient resting on the bed. Respiration even and unlabored. No acute distress. On O2 2L/min via NC. Skin warm and dry to touch. IV intact to right wrist, no redness, no swelling, no drainage. On KCl 10mEq at in 1/2NS at 60ml/hr, infusing well. SL intact to RFA and left hand, no redness, no swelling. F/C intact, drain gravity with yellow urine. ANURADHA mattress in placed. Safety measure maintained. Call light within reached. Bed in low position, side rails up, bed alarm on. Will continue to monitor.
--- NOTE | 2017-01-07 21:20 | NUR ---
ROUND Patient resting on the bed comfortable. No acute distress. Continue on O2 2L/min via NC. Safety measure maintained. Call light within reached. Bed in low position, side rails up, bed alarm on. Will continue to monitor.
--- NOTE | 2017-01-07 23:35 | NUR ---
ROUND Patient resting on the bed with eyes closed. Respiration even and unlabored. Continue on O2 via NC. Bed in low position, bed alarm on, side rails up. Call light within reached. Continue to monitor.
[2017-01-08] VITALS (7 sets, daily range): BP systolic 129–140
--- NOTE | 2017-01-08 01:57 | NUR ---
ROUND Patient resting on the bed with eyes closed. Respiration even and unlabored. Continue on O2 via NC. Safety measure maintained. Bed in low position, bed alarm on, side rails up. Call light within reached. Continue to monitor.
[2017-01-08] MEDS: IPRATROPIUM/ALBUTEROL SULFATE 3 ML AMPUL.NEB INH SCH ×4 (02:20→20:13)
--- NOTE | 2017-01-08 03:34 | NUR ---
ROUND Patient sleeping at this time. Respiration even and unlabored. Continue on O2 via NC. Safety measure maintained. Bed in low position, bed alarm on, side rails up. Call light within reached. Continue to monitor.
[2017-01-08] MEDS: PIPERACILLIN/TAZO 3.375/DEX-IS 50 ML IV SCH ×3 (06:07→17:29)
--- NOTE | 2017-01-08 06:35 | NUR ---
CLOSING NOTE Patient resting on the bed. Respiration even and unlabored. No acute distress. Continue on O2 2L/min via NC. Skin warm and dry to touch. IV intact and IVF infusing well. F/C intact, drain gravity with yellow urine. ANURADHA mattress in placed. All needs met. Hourly rounding during shift. Safety measure maintained. Call light within reached. Bed in low position, side rails up, bed alarm on. Will endorse to morning shift nurse.
[2017-01-08 07:23] LABS: BASOPHILS # (AUTO) 0.1 K/uL (0.0-0.2); BASOPHILS % (AUTO) 1.1 % (0.0-2.0); EOSINOPHILS # (AUTO) 0.2 K/uL (0.0-0.4); EOSINOPHILS % (AUTO) 2.8 % (0.0-4.0); HEMATOCRIT 36.2 % (36-54); LYMPHOCYTES # (AUTO) 1.5 K/uL (1.0-5.5); LYMPHOCYTES % (AUTO) 23.3 % (20.5-51.5); MEAN CORPUSCULAR HEMOGLOBIN 29 pg (27-31); MEAN CORPUSCULAR HGB CONC 33 % (32-36); MEAN CORPUSCULAR VOLUME 87 fL (79.0-98.0); MONOCYTES # (AUTO) 0.6 K/uL (0.0-1.0); MONOCYTES % (AUTO) 9.6 % (1.7-9.3); NEUTROPHILS # (AUTO) 4.1 K/uL (1.8-7.7); NEUTROPHILS % (AUTO) 63.2 % (40.0-70.0); PLATELET COUNT (AUTO) 180 K/uL (130-430); RED BLOOD CELL COUNT(AUTO) 4.15 MIL/uL (4.2-6.2); RED CELL DISTRIBUTION WIDTH 13.8 % (9.0-15.0); WHITE BLOOD COUNT (AUTO) 6.5 K/uL (4.8-10.8)
[2017-01-08 07:48] LABS: CALCIUM 9.3 mg/dL (8.4-11.0); CREATININE 1.11 mg/dL (0.55-1.30); POTASSIUM 3.5 mmol/L (3.5-5.1)
--- NOTE | 2017-01-08 08:02 | NUR ---
PATIENT AT REST, NONVERBAL. IV ON LEFT HAND, #20, INFUSED WITH D5 NS AT 70ML/HR. SR-ST ON MONITOR. CALL LIGHT IN PLACE, BED LOCKED AT LOWEST POSITION, WILL CONTINUE TO MONITOR.
[2017-01-08] MEDS: amLODIPine BESYLATE 10 MG TABLET PO SCH (08:52)
[2017-01-08] MEDS: TAMSULOSIN HCL 0.4 MG CAP PO SCH (08:52)
[2017-01-08] MEDS: MEMANTINE HCL 5 MG TABLET PO SCH (08:52)
[2017-01-08] MEDS: levETIRAcetam 500 MG TABLET PO SCH ×2 (08:53→20:45)
[2017-01-08] MEDS: METOPROLOL TARTRATE 50 MG TABLET PO SCH ×2 (08:53→20:44)
[2017-01-08] MEDS: LACTOBACILLUS RHAMNOSUS GG 1 CAP CAPSULE PO SCH ×2 (08:53→20:44)
[2017-01-08] MEDS: HEPARIN SODIUM,PORCINE 5000 UNITS/ML VIAL SUBCUT SCH ×2 (08:56→20:47)
--- NOTE | 2017-01-08 10:11 | NUR ---
DISCHARGE PLANNING DC order back to [facility]. Faxed referral to Annette Carr [facility] [phone]. Will follow up. Addendum: 01/08/17 at 1413 by Ingrid HSU Spoke with Dee Dee in admitting at [facility] who stated pending insurance auth and will return call with bed assignment once auth has been received. DCP will continue to follow up. Addendum: 01/08/17 at 1440 by Ingrid HSU DC order to [facility] per patient family. Faxed SNF referral to [facility] [phone] with noted LEXIE Copeland at [phone] Ext [phone] info to obtain insurance auth. Will follow up. Addendum: 01/08/17 at 1511 by Ingrid HSU Called [facility] left voice message for Dolores in admitting requesting return call back. Addendum: 01/08/17 at 1543 by Ingrid HSU Spoke with Dian[facility] who is working on insurance auth, once auth has been received will give bed assignment. Contracted ambulance [facility] [phone]. Placed transportation packet in nurses station. Addendum: 01/08/17 at 1548 by Ingrid HSU [phone] Ext [phone] Ref#[id number] left voice message requesting return call back. Addendum: 01/08/17 at 1601 by Ingrid HSU Faxed available clinical review with EMR to [facility] [phone] as requested. Pending insurance auth for bed assignment at [facility]. Addendum: 01/08/17 at 1642 by Ingrid HSU spoke with LEXIE Copeland at [facility] number [phone] who received updated EMR and will call nurses station with [facility] for ambulance transport. [facility] ambulance on will call pending bed assignment. Charge Nurse Slime made aware.
--- NOTE | 2017-01-08 12:58 | NUR ---
Discharge Planning 1000: Order received to dc patient back to [facility]. Met with Dr Patel in nurses' station to find out if he had spoken with patient's family. Dr Patel called and left message for Dtr Elenita explaining that patient needed SNF placement for IV ABX. 1255: called and left another message for Dtr Elenita asking her to return my call. Addendum: 01/08/17 at 1314 by Dolores Phillip RN Called Dtr Anne, , to discuss dc planning back to SNF but she did not answer and voicemail is full. Called and spoke with Son Bossman Lopes, , to advise him of order to transfer patient back to SNF. Bossman said he already spoke to someone earlier and that he is aware and agreeable to transfer back to SNF. I told him when we had a time of transfer we would give him or his sister a call back to update them.
--- NOTE | 2017-01-08 15:15 | NUR ---
PATIENT IS TURNED AND REPOSITIONED FOR COMFORT. NO SIGNS OF DISTRESS NOTED, SR ON MONITOR.
--- NOTE | 2017-01-08 17:10 | NUR ---
PATIENT IS TURNED AND REPOSITIONED FOR COMFORT. NO SIGNS OF DISTRESS NOTED, BREATHING UNLABORED, O2 SAT IN THE MID 90S%
--- NOTE | 2017-01-08 19:35 | NUR ---
INITIAL NOTE Patient resting on the bed. Respiration even and unlabored. No acute distress. On O2 2L/min via NC. Skin warm and dry to touch. SL intact to left hand, right wrist, RFA, no redness, no swelling. F/C intact, drain gravity with yellow urine. ANURADHA mattress in placed. Family at bedside. Discussed the safety issue, plan of care, and transfer tonight, verbally understanding. Safety measure maintained. Call light within reached. Bed in low position, side rails up, bed alarm on. Will continue to monitor.
--- NOTE | 2017-01-08 21:00 | NUR ---
ROUND Patient resting on the bed. No acute distress. Respiration even and unlabored. Continue on O2 via NC. Safety measure maintained. Call light within reached. Continue to monitor.
--- NOTE | 2017-01-08 22:15 | NUR ---
PT TRANSFERRED Report given to Nico-nurse lopez [place] by Leighton. Transfer packet with Transfer Orders and Medication Reconciliation form given to EMT with report. Exitcare provided. [facility] ID band removed, replaced with ID band with pt's name and . All belongings sent with patient. Patient left floor via gurney escorted by EMT in no distress.
== END 2017-01-08 22:15 | DRG 720 ==
LOC: SED 23:05 → STU 01-05 01:35
PROVIDERS: ADMIT General Practice; ATTEND General Practice
PROC: 5A09357 Assistance with Respiratory Ventilation, Less than 24 Consecutive Hours, Continuous Positive Airway Pressure (ICD-10-PCS; principal; 2017-01-05)
DX: A41.9 Sepsis, unspecified organism (principal); J96.00 Acute respiratory failure, unspecified whether with hypoxia or hypercapnia; J69.0 Pneumonitis due to inhalation of food and vomit; E43 Unspecified severe protein-calorie malnutrition; L89.322 Pressure ulcer of left buttock, stage 2; R13.10 Dysphagia, unspecified; G30.9 Alzheimer's disease, unspecified; M48.56XA Collapsed vertebra, not elsewhere classified, lumbar region, initial encounter for fracture; F02.80 Dementia in other diseases classified elsewhere, unspecified severity, without behavioral disturbance, psychotic disturbance, mood disturbance, and anxiety; J44.9 Chronic obstructive pulmonary disease, unspecified; E87.6 Hypokalemia; I10 Essential (primary) hypertension; G40.909 Epilepsy, unspecified, not intractable, without status epilepticus; N40.0 Benign prostatic hyperplasia without lower urinary tract symptoms; Z86.73 Personal history of transient ischemic attack (TIA), and cerebral infarction without residual deficits
CPT/HCPCS: 36415; 36600; 71010; 80048; 80053; 81000-TC; 82803-TC; 83605; 83690-TC; 83735-TC; 83880; 84484; 85025; 85610-TC; 87040-TC; 87081; 92610-GN; 93005; 94640; 94660; 94760; 96365; 96366; 96375; 99285; J1644; J2543; J3370; J3480; J7030; J7042; J7050; J7060